=== PATIENT | female | born 1935 | race Caucasian/White ===

== ENCOUNTER 2017-03-09 02:28 | Inpatient (IN) ==
--- NOTE | 2017-03-09 02:09 | Internal Med History&Physical ---
Date of Encounter: 03/09/17 Time of Encounter: 02:09 Assessment and Plan (1) Rhabdomyolysis Current visit: Yes Status: Acute patient fell and was on the floor for about 12 ours, she was found extremely dehydrated with increased creatinine from her baseline and elevated creatinine kinase in the 5,000's, we will admit for aggressive IVF and follow BMP Qualifiers: Rhabdomyolysis type: traumatic Encounter type: initial encounter Qualified Code(s): T79.6XXA - Traumatic ischemia of muscle, initial encounter (2) LESVIA (acute kidney injury) Current visit: Yes Status: Acute from rhabdomyolyis and GI fluid loss, we will aggressive;y hydrate, avoid nephrotoxins, renally dose all medications and follow BMP, she has a baseline creatinine of 1.8, admitted with 3.7, should her renal function worsen we will get nephrology involved (3) CKD (chronic kidney disease) Current visit: Yes Status: Chronic per LESVIA section Qualifiers: Chronic kidney disease stage: stage 3 (moderate) Qualified Code(s): N18.3 - Chronic kidney disease, stage 3 (moderate) (4) Diabetes mellitus Current visit: Yes Status: Chronic well controlled with A1c of 5.7% last month, on Januvia at home, we will hold and do FS ACHS with SSI for coverage Qualifiers: Diabetes mellitus type: type 2 Diabetes mellitus complication status: with neurologic complications Diabetes mellitus complication detail: with polyneuropathy Diabetes mellitus termite control servicer insulin use: without termite control servicer use Qualified Code(s): E11.42 - Type 2 diabetes mellitus with diabetic polyneuropathy (5) Afib Current visit: Yes Status: Chronic paroxysmal in nature most likely, she is on systemic anticoagulation and rate and rhythm control medications, we will continue and follow INR daily, current INR in 3.9, we will check digoxin levels in the setting of LESVIA Qualifiers: Atrial fibrillation type: paroxysmal Qualified Code(s): I48.0 - Paroxysmal atrial fibrillation (6) HTN (hypertension) Current visit: Yes Status: Chronic will continue home medications and follow BP, will temporarily hold antihypertensives if BP is low from extreme dehydration Qualifiers: Hypertension type: essential hypertension Qualified Code(s): I10 - Essential (primary) hypertension (7) GERD (gastroesophageal reflux disease) Current visit: Yes Status: Chronic not on any home medications, will monitor Qualifiers: Esophagitis presence: without esophagitis Qualified Code(s): K21.9 - Gastro -esophageal reflux disease without esophagitis Internal Medicine - H&P: HPI Chief complaint: diarrhea and generalized weakness Admitted From: Hospital to Hospital Transfer Plans for Post Hospital Care: Home History of present illness: Ms. Barr is a 81 year old female with a history of CKD stage [address] up [address] Miller was transferred here for Rhabdomyolysis from [facility]. She reports that she fell without injury on Saturday morning at around 3 AM but that she was unable to get up off the floor until Saturday at 3pm in the afternoon. She subsequently has been having persistent diarrhea which she has had difficulty in controlling. She reports having 3-4 liquid stools a day without blood or mucus. She denies intake of solid food this week but has been taking lemonade. She denies abdominal pain, fever or chills. On the day of presentation she was sitting on the toilet seat for about an hour and was too weak to get off the seat, EMS had to assist her off the toilet seat and take her to [facility] for evaluation where she was found to have extreme dehydration with LESVIA and rhabdomyolysis. Past Med Surg Social Fam HX - Past Medical History Medical history: atrial fibrillation, cardiomyopathy, diabetes, GERD, hyperlipidemia, hypertension, renal disease Psychiatric history: no psych history - Past Surgical History Surgical History: cholecystectomy, hysterectomy, pacemaker/AICD - Social History Smoking Status: Never smoker Smokeless Tobacco Status: No Alcohol use: none Drug use: none - Additional Family History Additional family history: father had ESRD and was on HD prior to his , mother of a hemorrhagic stroke Internal Medicine - H&P: Meds Digoxin [Lanoxin] 0.125 mg PO DAILY 08/26/15 [History] Furosemide [Lasix] 40 mg PO AD 08/26/15 [History] Losartan [Cozaar] 100 mg PO DAILY 08/26/15 [History] Metoprolol [Lopressor] 100 mg PO BID 08/26/15 [History] Propafenone [Rhythmol] 150 mg PO TID 08/26/15 [History] SitaGLIPtin [Januvia] 25 mg PO DAILY 08/26/15 [History] Warfarin [Coumadin] 3 mg PO DAILY 08/26/15 [History] amLODIPine [Norvasc] 2.5 mg PO DAILY 08/26/15 [History] Allopurinol [Zyloprim 100 MG] 100 mg PO BID 03/09/17 [History] Allergies No Known Allergies Allergy (Verified 03/08/17 19:40) All Systems PM: A 10-system review of systems was performed and is negative for pertinent findings except as documented above in the HPI. - Constitutional Vitals: Temp Pulse Resp BP Pulse Ox 99.3 F 99 14 106/56 95 03/09/17 02:06 03/09/17 02:06 03/09/17 02:06 03/09/17 02:06 03/09/17 02:06 PHYSICAL EXAMINATION: GENERAL: Elderly female, lying in bed with no sign of distress, Alert, looks extremely fatigued HEENT: NC/AT, EOMI, PERRLA, anicteric sclera, normal conjunctiva, supple, clear nares, dry mucous membranes, RESP: lungs are clear to auscultation bilaterally, good AE bilaterally, No crackles or wheeze CARDIO: Normal hearts sounds; S1 and 2, RRR with occasional ectopic beats, has a systolic murmur, GI: Soft, full, no tenderness, no organomegaly felt, normal bowel sounds heard MUSCULOSKELETAL: grossly normal movements bilaterally, bilateral red, warm, tender shins with pitting edema, LUE antecubital area edema from IV line infiltration NEUROLOGIC: CN 2-12 intact grossly. No motor/sensory deficit appreciated, PSYCHIATRY: AAO x 3. Mood is fair, SKIN: no skin rash or ulcers noted Internal Med - H&P Results - Labs CBC & Chem 7: 03/09/17 03:11 03/09/17 03:11 - EKG Data -: EKG Interpreted by Myself
[~2017-03-09 02:28] MED LIST: Naloxone 0.4 MG/ML INJ IVP PRN
[2017-03-09] MEDS ORDERED: *HR* Dextrose 50 % in Water (Syg) 50 ML SYRINGE IVP PRN (02:33)
[2017-03-09] MEDS ORDERED: Dextrose Gel 15 GM PO PRN ×2 (02:33)
[2017-03-09] MEDS ORDERED: D5% in Water 1,000 ML IVC PRN (02:33)
[2017-03-09] MEDS: Acetaminophen 325 MG TABLET PO PRN (03:03)
[2017-03-09] MEDS: Insulin LISPRO 300 UNITS/3 ML VIAL SQ SCH ×6 (03:03→20:39)
[2017-03-09] MEDS: 0.9 % Sodium Chloride 1,000 ML IVC SCH ×2 (03:03→07:34)
[2017-03-09] MEDS: Metoprolol 100 MG TABLET PO SCH ×3 (03:04→20:58)
[2017-03-09 03:23] LABS: Hematocrit 30.7 % (35.3-44.9); Hemoglobin 10.3 g/dL (11.5-15.4); Mean Corpuscular HGB Conc 33.6 g/dL (31.6-35.5); Mean Corpuscular Hemoglobin 29.3 pg (28.0-33.3); Mean Corpuscular Volume 87.2 fL (83.0-100.0); Mean Platelet Volume 10.6 fL (9.4-12.4); Platelet Count 188 K/mcL (140-400); Red Blood Count 3.52 M/mcL (3.82-4.97); Red Cell Distribution Width 13.9 % (11.5-14.5)
[2017-03-09 03:29] LABS: INR 3.9
[2017-03-09 03:35] LABS: Prothrombin Time 43.8 Seconds (9.4-12.1)
[2017-03-09 03:39] LABS: Calcium 8.4 mg/dL (8.6-10.8); Magnesium 1.4 mg/dL (1.6-2.6); Potassium 3.3 mEq/L (3.5-4.5)
[2017-03-09 03:47] LABS: Digoxin 1.5 ng/mL (0.8-2.0)
[2017-03-09] MEDS: amLODIPine 5 MG TABLET PO SCH (07:40)
[2017-03-09] MEDS: *HR* Digoxin 0.125 MG TABLET PO SCH (07:42)
[2017-03-09] MEDS ORDERED: *HR* Warfarin 3 MG TABLET PO SCH (09:00)
[2017-03-09] MEDS ORDERED: Magnesium Sulfate 2 GM in D5% in Water 100 ML IVPB ONE (12:11)
--- NOTE | 2017-03-09 12:16 | Internal Med Progress Note ---
Date of Encounter: 03/09/17 Time of Encounter: 12:14 - Assessment and plan (1) LESVIA (acute kidney injury) Current Visit: Yes Status: Acute Assessment and plan: continue with iv fluids. likely prerenal. monitor kidney function tests. avoid nephrotoxic agents. (2) Rhabdomyolysis Current Visit: Yes Status: Acute Assessment and plan: continue iv fluids. recheck cpk and calcium tomorrow. Qualifiers: Rhabdomyolysis type: traumatic Encounter type: initial encounter Qualified Code(s): T79.6XXA - Traumatic ischemia of muscle, initial encounter (3) Afib Current Visit: Yes Status: Chronic Assessment and plan: continue home meds. hold cumadin for now. Qualifiers: Atrial fibrillation type: paroxysmal Qualified Code(s): I48.0 - Paroxysmal atrial fibrillation (4) CKD (chronic kidney disease) Current Visit: Yes Status: Chronic Qualifiers: Chronic kidney disease stage: stage 3 (moderate) Qualified Code(s): N18.3 - Chronic kidney disease, stage 3 (moderate) (5) Diabetes mellitus Current Visit: Yes Status: Chronic Assessment and plan: insulin therapy. Qualifiers: Diabetes mellitus type: type 2 Diabetes mellitus complication status: with neurologic complications Diabetes mellitus complication detail: with polyneuropathy Diabetes mellitus dedicated intermodal truck driver insulin use: without dedicated intermodal truck driver use Qualified Code(s): E11.42 - Type 2 diabetes mellitus with diabetic polyneuropathy (6) GERD (gastroesophageal reflux disease) Current Visit: Yes Status: Chronic Qualifiers: Esophagitis presence: without esophagitis Qualified Code(s): K21.9 - Gastro -esophageal reflux disease without esophagitis (7) HTN (hypertension) Current Visit: Yes Status: Chronic Qualifiers: Hypertension type: essential hypertension Qualified Code(s): I10 - Essential (primary) hypertension (8) Dehydration Current Visit: No Status: Acute Assessment and plan: continue flids. (9) Diarrhea Current Visit: No Status: Acute Assessment and plan: resolved for now, continue mnitorign. started on flayl empirically. Qualifiers: Diarrhea type: unspecified type Qualified Code(s): R19.7 - Diarrhea, unspecified - Subjective Interval history: feels better, no more diarhe.a - Constitutional Vitals: Temp Pulse Resp BP Pulse Ox 98.3 F 59 18 101/54 97 03/09/17 11:01 03/09/17 11:01 03/09/17 11:01 03/09/17 11:01 03/09/17 11:01 General appearance: Present: A&O X 3, pleasant, no acute distress - Head Head exam: Present: atraumatic, normocephalic - Eye Eye exam: Present: PERRL, conjuntiva pink, sclera anicteric Pupils: Present: PERRL - Neck Neck exam general surgery: Present: supple, trachea midline. Absent: lymphadenopathy - Respiratory Respiratory exam: Present: CTAB. Absent: accessory muscle use, rales, rhonchi, wheezes - Cardiovascular Cardiovascular exam: Present: RRR, +S1, +S2. Absent: diastolic murmur, gallop, rubs, systolic murmur - GI/Abdominal GI/Abdominal exam: Present: normal bowel sounds, soft, no peritoneal signs. Absent: distended, tenderness - Extremities Exam Extremities exam: Present: warm, radial pulses palpable and symetrical. Absent : calf tenderness, cyanotic, pedal edema - Neurological Exam Neurological exam: Present: CN II-XII intact, oriented X3, no focal deficits. Absent: pronater drift, facial droop, speech deficit - Skin Skin exam: Present: dry, intact Internal Medicine: Result - Labs CBC & Chem 7: 03/09/17 03:11 03/09/17 03:11 Labs: Short CBC 03/09/17 Range/Units 03:11 WBC 23.7 H (4.3-11.1) K/mcL Hgb 10.3 L (11.5-15.4) g/dL Hct 30.7 L (35.3-44.9) % Plt Count 188 (140-400) K/mcL BMP 03/09/17 03:11 Sodium 134 L Potassium 3.3 L Chloride 102 Carbon Dioxide 18 L BUN 63 H Creatinine 3.15 H Glucose 134 H Calcium 8.4 L Cardiac Enzymes 03/09/17 Range/Units 03:11 Troponin I 0.04 H* (0-0.03) ng/mL - ABG Interpretation ABG results: PT/INR, D-dimer PT 43.8 Seconds (9.4-12.1) H* 03/09/17 03:11 Consult Discharge Plan - Plan Referrals: Karen Syed DO [Primary Care Provider] -
[2017-03-09] MEDS: MetroNIDAZOLE 500 MG/100 ML 500 MG/100 ML BAG IVPB SCH (15:33)
[2017-03-09] MEDS ORDERED: Warfarin perPT PO PRN (18:00)
[2017-03-10] MEDS: MetroNIDAZOLE 500 MG/100 ML 500 MG/100 ML BAG IVPB SCH ×3 (00:05→16:02)
[2017-03-10 04:13] LABS: INR 4.1
[2017-03-10 04:18] LABS: Basophils % 0.1 %; Eosinophils # 0.1 K/mcL (0.0-0.6); Eosinophils % 0.3 %; Hematocrit 24.6 % (35.3-44.9); Immature Granulocytes % 0.6 % (0-4); Lymphocytes # 1.4 K/mcL (0.6-4.6); Lymphocytes % 6.8 %; Mean Corpuscular HGB Conc 34.1 g/dL (31.6-35.5); Mean Corpuscular Hemoglobin 30.3 pg (28.0-33.3); Mean Corpuscular Volume 88.8 fL (83.0-100.0); Mean Platelet Volume 11.4 fL (9.4-12.4); Monocytes # 0.9 K/mcL (0.0-1.3); Monocytes % 4.7 %; Neutrophils # 17.4 K/mcL (1.6-8.9); Platelet Count 170 K/mcL (140-400); Red Blood Count 2.77 M/mcL (3.82-4.97); Red Cell Distribution Width 14.1 % (11.5-14.5); Segmented Neutrophils % 87.5 %
[2017-03-10 04:20] LABS: Prothrombin Time 45.7 Seconds (9.4-12.1)
[2017-03-10 04:21] LABS: Hemoglobin 8.4 g/dL (11.5-15.4)
[2017-03-10 04:23] LABS: Calcium 7.9 mg/dL (8.6-10.8); Potassium 3.9 mEq/L (3.5-4.5)
[2017-03-10] MEDS: Insulin LISPRO 300 UNITS/3 ML VIAL SQ SCH ×3 (08:21→17:15)
[2017-03-10] MEDS: *HR* Digoxin 0.125 MG TABLET PO SCH (08:28)
[2017-03-10] MEDS: Metoprolol 100 MG TABLET PO SCH ×2 (08:28→21:55)
[2017-03-10] MEDS: amLODIPine 5 MG TABLET PO SCH (08:29)
[2017-03-10] MEDS: Acetaminophen 325 MG TABLET PO PRN ×2 (11:09→18:35)
[2017-03-10] MEDS: 0.9 % Sodium Chloride 1,000 ML IVC SCH ×2 (11:09→21:55)
--- NOTE | 2017-03-10 12:39 | Electrocardiograph Report ---
[place] [id number] Test Date: 2017-03-09 Pat Name: Esmer Barr Department: 112 Room: [facility] Gender: F Auto Mechanic: DONALDO : 1935 Requested By: Cheikh Foster Order Number: [id number] [place] MD: Fernando Palma Measurements Intervals [place] Rate: 95 P: 259 DC: 245 QRS: 2 QRSD: 105 T: 35 QT: 368 QTc: 421 Interpretive Statements ECTOPIC ATRIAL RHYTHM WITH FIRST DEGREE AV BLOCK NONSPECIFIC ST \T\ T-WAVE ABNORMALITY Electronically Signed On 03-10-2017 12:37:48 EDT by Fernando Palma
--- NOTE | 2017-03-10 13:43 | Internal Med Progress Note ---
Date of Encounter: 03/10/17 Time of Encounter: 09:55 - Assessment and plan (1) LESVIA (acute kidney injury) Current Visit: Yes Status: Acute Assessment and plan: resume iv fluids @ 100 ml / h likely prerenal. elevated cpk, which is downtrending. monitor kidney function tests. avoid nephrotoxic agents. baseline creatinine 1.80-2. Today creatinine is 2.7, downtrending, it was 3.71 on admission. will continue monitoring. (2) Afib Current Visit: Yes Status: Chronic Assessment and plan: continue home meds. hold cumadin for now. Qualifiers: Atrial fibrillation type: paroxysmal Qualified Code(s): I48.0 - Paroxysmal atrial fibrillation (3) CKD (chronic kidney disease) Current Visit: Yes Status: Chronic Qualifiers: Chronic kidney disease stage: stage 3 (moderate) Qualified Code(s): N18.3 - Chronic kidney disease, stage 3 (moderate) (4) Diabetes mellitus Current Visit: Yes Status: Chronic Assessment and plan: insulin therapy. glucose stable. Qualifiers: Diabetes mellitus type: type 2 Diabetes mellitus complication status: with neurologic complications Diabetes mellitus complication detail: with polyneuropathy Diabetes mellitus long term care social worker insulin use: without long term care social worker use Qualified Code(s): E11.42 - Type 2 diabetes mellitus with diabetic polyneuropathy (5) GERD (gastroesophageal reflux disease) Current Visit: Yes Status: Chronic Qualifiers: Esophagitis presence: without esophagitis Qualified Code(s): K21.9 - Gastro -esophageal reflux disease without esophagitis (6) HTN (hypertension) Current Visit: Yes Status: Chronic Qualifiers: Hypertension type: essential hypertension Qualified Code(s): I10 - Essential (primary) hypertension (7) Dehydration Current Visit: No Status: Acute Assessment and plan: continue flids. (8) Diarrhea Current Visit: No Status: Acute Assessment and plan: resolved for now, continue monitorign. started on flayl empirically. send stool sample if diarrhea, d/w nursing staff. Qualifiers: Diarrhea type: unspecified type Qualified Code(s): R19.7 - Diarrhea, unspecified - Subjective Interval history: feels better, no more diarhea, no nausea - Constitutional Vitals: Temp Pulse Resp BP Pulse Ox 98.8 F 59 18 109/61 96 03/10/17 11:11 03/10/17 11:11 03/10/17 11:11 03/10/17 11:11 03/10/17 11:11 General appearance: Present: A&O X 3, pleasant, no acute distress - Head Head exam: Present: atraumatic, normocephalic - Eye Eye exam: Present: PERRL, conjuntiva pink, sclera anicteric Pupils: Present: PERRL - Neck Neck exam general surgery: Present: supple, trachea midline. Absent: lymphadenopathy - Respiratory Respiratory exam: Present: CTAB. Absent: accessory muscle use, rales, rhonchi, wheezes - Cardiovascular Cardiovascular exam: Present: RRR, +S1, +S2. Absent: diastolic murmur, gallop, rubs, systolic murmur - GI/Abdominal GI/Abdominal exam: Present: normal bowel sounds, soft, no peritoneal signs. Absent: distended, tenderness - Extremities Exam Extremities exam: Present: warm, radial pulses palpable and symetrical. Absent : calf tenderness, cyanotic, pedal edema - Neurological Exam Neurological exam: Present: CN II-XII intact, oriented X3, no focal deficits. Absent: pronater drift, facial droop, speech deficit - Skin Skin exam: Present: dry, intact Internal Medicine: Result - Labs CBC & Chem 7: 03/10/17 03:46 03/10/17 03:46 Labs: Short CBC 03/10/17 Range/Units 03:46 WBC 19.9 H (4.3-11.1) K/mcL Hgb 8.4 L D (11.5-15.4) g/dL Hct 24.6 L (35.3-44.9) % Plt Count 170 (140-400) K/mcL Neutrophils # 17.4 H (1.6-8.9) K/mcL BMP 03/10/17 03:46 Sodium 130 L Potassium 3.9 Chloride 105 Carbon Dioxide 14 L BUN 59 H Creatinine 2.70 H Glucose 108 H Calcium 7.9 L - ABG Interpretation ABG results: PT/INR, D-dimer PT 45.7 Seconds (9.4-12.1) H* 03/10/17 03:46 Consult Discharge Plan - Plan Referrals: Karen Syed DO [Primary Care Provider] - (web request sent on 03/09/17)
[2017-03-10] MEDS ORDERED: Magnesium Sulfate 2 GM in D5% in Water 100 ML IVPB ONE (17:28)
[2017-03-11] MEDS: Insulin LISPRO 300 UNITS/3 ML VIAL SQ SCH ×5 (00:12→20:30)
[2017-03-11] MEDS: MetroNIDAZOLE 500 MG/100 ML 500 MG/100 ML BAG IVPB SCH ×3 (00:16→15:16)
[2017-03-11 04:59] LABS: Basophils % 0.2 %; Eosinophils # 0.2 K/mcL (0.0-0.6); Hematocrit 25.6 % (35.3-44.9); Hemoglobin 8.5 g/dL (11.5-15.4); Immature Granulocytes % 1.5 % (0-4); Lymphocytes # 1.4 K/mcL (0.6-4.6); Lymphocytes % 7.3 %; Mean Corpuscular HGB Conc 33.2 g/dL (31.6-35.5); Mean Corpuscular Hemoglobin 29.2 pg (28.0-33.3); Mean Platelet Volume 10.6 fL (9.4-12.4); Monocytes # 1.1 K/mcL (0.0-1.3); Monocytes % 5.6 %; Neutrophils # 16.1 K/mcL (1.6-8.9); Platelet Count 175 K/mcL (140-400); Red Blood Count 2.91 M/mcL (3.82-4.97); Red Cell Distribution Width 14.3 % (11.5-14.5); Segmented Neutrophils % 84.4 %
[2017-03-11 05:01] LABS: INR 2.7; Prothrombin Time 29.5 Seconds (9.4-12.1)
[2017-03-11 05:14] LABS: Calcium 7.8 mg/dL (8.6-10.8); Potassium 3.7 mEq/L (3.5-4.5)
[2017-03-11] MEDS: amLODIPine 5 MG TABLET PO SCH (08:32)
[2017-03-11] MEDS: Metoprolol 100 MG TABLET PO SCH ×2 (08:32→20:18)
[2017-03-11] MEDS: *HR* Digoxin 0.125 MG TABLET PO SCH (08:33)
[2017-03-11] MEDS: 0.9 % Sodium Chloride 1,000 ML IVC SCH (11:51)
[2017-03-11 15:07] LABS: Bilirubin,Urine Negative (Negative); Blood,Urine Negative (Negative); Color,Urine Yellow (Yellow); Glucose,Urine (UA) Normal (Normal); Ketones,Urine Negative (Negative); Leukocyte Esterase,Urine Trace (Negative); Nitrite,Urine Negative (Negative); Protein,Urine Trace mg/dL (Neg-Trace); Specific Gravity,Urine 1.016 (1.010-1.025); Urobilinogen,Urine Normal (Normal)
[2017-03-11 15:11] LABS: Clarity,Urine Clear (Clear)
[2017-03-11 15:15] LABS: Hyaline Casts,Urine None Seen per lpf (None-Few)
[2017-03-11 15:32] LABS: Bacteria,Urine Moderate per hpf (None-Few); RBC,Urine 0-3 per hpf (0-3); Squamous Epithelial Cell,Urine Few per lpf (None-Few); WBC,Urine 0-3 per hpf (0-3)
[2017-03-11] MEDS ORDERED: amLODIPine 5 MG TABLET PO ONE (17:04)
[2017-03-11] MEDS ORDERED: *HR* Warfarin 2 MG TABLET PO ONE (18:00)
[2017-03-11 18:42] LABS: % Iron Saturation 12 % (15-50); Iron 25 mcg/dL (50-170); Lactate Dehydrogenase 500 Units/L (159-327); Transferrin 144 mg/dL (180-382)
--- NOTE | 2017-03-11 18:43 | Internal Med Progress Note ---
Date of Encounter: 03/11/17 Time of Encounter: 12:25 - Assessment and plan (1) LESVIA (acute kidney injury) Current Visit: Yes Status: Acute Assessment and plan: continue iv fluids, renal function tets slowly improving. likely prerenal. elevated cpk, which is downtrending. monitor kidney function tests. avoid nephrotoxic agents. baseline creatinine 1.80-2. will continue monitoring. (2) Afib Current Visit: Yes Status: Chronic Assessment and plan: continue home meds. hold cumadin for now. Qualifiers: Atrial fibrillation type: paroxysmal Qualified Code(s): I48.0 - Paroxysmal atrial fibrillation (3) CKD (chronic kidney disease) Current Visit: Yes Status: Chronic Qualifiers: Chronic kidney disease stage: stage 3 (moderate) Qualified Code(s): N18.3 - Chronic kidney disease, stage 3 (moderate) (4) Diabetes mellitus Current Visit: Yes Status: Chronic Assessment and plan: insulin therapy. glucose stable. Qualifiers: Diabetes mellitus type: type 2 Diabetes mellitus complication status: with neurologic complications Diabetes mellitus complication detail: with polyneuropathy Diabetes mellitus adjunct faculty for medical terminology insulin use: without adjunct faculty for medical terminology use Qualified Code(s): E11.42 - Type 2 diabetes mellitus with diabetic polyneuropathy (5) GERD (gastroesophageal reflux disease) Current Visit: Yes Status: Chronic Qualifiers: Esophagitis presence: without esophagitis Qualified Code(s): K21.9 - Gastro -esophageal reflux disease without esophagitis (6) HTN (hypertension) Current Visit: Yes Status: Chronic Qualifiers: Hypertension type: essential hypertension Qualified Code(s): I10 - Essential (primary) hypertension (7) Dehydration Current Visit: No Status: Acute Assessment and plan: continue flids. (8) Diarrhea Current Visit: No Status: Acute Assessment and plan: resolved for now, continue monitorign. started on flayl empirically. negative testing for cdiff. send stool sample if diarrhea, d/w nursing staff. Qualifiers: Diarrhea type: unspecified type Qualified Code(s): R19.7 - Diarrhea, unspecified (9) Leukocytosis Current Visit: Yes Status: Acute Assessment and plan: slowly trending down, no uti, no pneumonia, no cellulitis, no c diff Qualifiers: Leukocytosis type: unspecified Qualified Code(s): D72.829 - Elevated white blood cell count, unspecified - Subjective Interval history: feels better, no diarrhea, no nausea, still knee pain, seems chornic. - Constitutional Vitals: Temp Pulse Resp BP Pulse Ox 97.7 F 71 18 180/66 94 03/11/17 16:48 03/11/17 16:48 03/11/17 16:48 03/11/17 16:48 03/11/17 16:48 General appearance: Present: A&O X 3, pleasant, no acute distress - Head Head exam: Present: atraumatic, normocephalic - Eye Eye exam: Present: PERRL, conjuntiva pink, sclera anicteric Pupils: Present: PERRL - Neck Neck exam general surgery: Present: supple, trachea midline. Absent: lymphadenopathy - Respiratory Respiratory exam: Present: CTAB. Absent: accessory muscle use, rales, rhonchi, wheezes - Cardiovascular Cardiovascular exam: Present: RRR, +S1, +S2. Absent: diastolic murmur, gallop, rubs, systolic murmur - GI/Abdominal GI/Abdominal exam: Present: normal bowel sounds, soft, no peritoneal signs. Absent: distended, tenderness - Extremities Exam Extremities exam: Present: warm, radial pulses palpable and symetrical. Absent : calf tenderness, cyanotic, pedal edema - Neurological Exam Neurological exam: Present: CN II-XII intact, oriented X3, no focal deficits. Absent: pronater drift, facial droop, speech deficit - Skin Skin exam: Present: dry, intact Internal Medicine: Result - Labs CBC & Chem 7: 03/11/17 04:16 03/11/17 04:16 Labs: Short CBC 03/11/17 Range/Units 04:16 WBC 19.1 H (4.3-11.1) K/mcL Hgb 8.5 L (11.5-15.4) g/dL Hct 25.6 L (35.3-44.9) % Plt Count 175 (140-400) K/mcL Neutrophils # 16.1 H (1.6-8.9) K/mcL BMP 03/11/17 04:16 Sodium 135 L Potassium 3.7 Chloride 109 Carbon Dioxide 18 L BUN 48 H D Creatinine 2.05 H Glucose 93 Calcium 7.8 L Urine 03/11/17 Range/Units 14:54 Urine Color Yellow (Yellow) Urine Clarity Clear (Clear) Urine pH 6.0 (5.0-8.0) pH Units Ur Specific [place] 1.016 (1.010-1.025) Urine Protein Trace (Neg-Trace) mg/dL Urine Glucose (UA) Normal (Normal) mg/dL - ABG Interpretation ABG results: PT/INR, D-dimer PT 29.5 Seconds (9.4-12.1) H 03/11/17 04:16 - Impressions Impressions Chest CT 03/11/17 14:15 IMPRESSION: 1. No acute pulmonary infiltrate identified. New small bilateral pleural effusions with very mild dependent lower lobe atelectasis. 2. Otherwise unremarkable noncontrast CT of the chest. D/ / 03/11/2017 15:37:44 Dao Escobar MD / [email or web address] Interpreting Provider: Dao Escobar MD Consult Discharge Plan - Plan Referrals: Karen Syed DO [Primary Care Provider] - (web request sent on 03/09/17 Patient will go to Rehab)
[2017-03-11 19:16] LABS: Ferritin 2182 ng/ml (5-204)
[2017-03-11 19:33] LABS: Folate 7.6 ng/mL (7.0-31.4)
[2017-03-12] MEDS: MetroNIDAZOLE 500 MG/100 ML 500 MG/100 ML BAG IVPB SCH ×2 (00:18→08:48)
[2017-03-12] MEDS: 0.9 % Sodium Chloride 1,000 ML IVC SCH ×2 (02:28)
[2017-03-12 05:41] LABS: Basophils % 0.2 %; Eosinophils # 0.2 K/mcL (0.0-0.6); Eosinophils % 1.4 %; Hemoglobin 8.5 g/dL (11.5-15.4); Immature Granulocytes % 4.2 % (0-4); Lymphocytes # 1.8 K/mcL (0.6-4.6); Lymphocytes % 10.5 %; Mean Corpuscular Volume 88.3 fL (83.0-100.0); Monocytes # 1.7 K/mcL (0.0-1.3); Neutrophils # 12.5 K/mcL (1.6-8.9); Platelet Count 220 K/mcL (140-400); Red Blood Count 2.83 M/mcL (3.82-4.97); Red Cell Distribution Width 14.6 % (11.5-14.5); Segmented Neutrophils % 73.7 %
[2017-03-12 05:49] LABS: INR 2.4; Prothrombin Time 26.3 Seconds (9.4-12.1)
[2017-03-12 05:56] LABS: Calcium 7.7 mg/dL (8.6-10.8); Magnesium 1.9 mg/dL (1.6-2.6); Potassium 3.9 mEq/L (3.5-4.5)
[2017-03-12] MEDS: Insulin LISPRO 300 UNITS/3 ML VIAL SQ SCH ×5 (08:47→22:37)
[2017-03-12] MEDS: amLODIPine 5 MG TABLET PO SCH (08:47)
[2017-03-12] MEDS: Metoprolol 100 MG TABLET PO SCH ×2 (08:47→22:37)
[2017-03-12] MEDS: *HR* Digoxin 0.125 MG TABLET PO SCH (08:51)
[2017-03-12] MEDS ORDERED: *HR* Phytonadione 5 MG TABLET PO ONE (12:15)
--- NOTE | 2017-03-12 15:41 | Gastroenterology Consult Note ---
Date of Encounter: 03/12/17 Time of Encounter: 11:50 - Assessment and plan (1) Anemia Current Visit: Yes Status: Acute Assessment and plan: Hgb 10.3 on admission and this a.m. Hgb 8.5. Iron 25 with ferritin 2182. Check hemochromatosis panel. Plan for colonoscopy if INR less than 1.5. Clear liquid diet all day Saturday with no red or purple. NPO at midnight Saturday night. If unable tolerate NuLytely please use MiraLAX prep. If not clear by 6 AM, give 2 tap water enemas. Qualifiers: Qualified Code(s): D64.9 - Anemia, unspecified (2) Diarrhea Current Visit: No Status: Acute Assessment and plan: Resolved. Qualifiers: Diarrhea type: unspecified type Qualified Code(s): R19.7 - Diarrhea, unspecified (3) GERD (gastroesophageal reflux disease) Current Visit: Yes Status: Chronic Qualifiers: Esophagitis presence: without esophagitis Qualified Code(s): K21.9 - Gastro -esophageal reflux disease without esophagitis (4) Leukocytosis Current Visit: Yes Status: Acute Assessment and plan: Continue Flagyl. Qualifiers: Leukocytosis type: unspecified Qualified Code(s): D72.829 - Elevated white blood cell count, unspecified (5) Supratherapeutic INR Current Visit: Yes Status: Acute Assessment and plan: INR 3.9 on admission, down to 2.4 today. She has received Vitamin K. Will need INR less than 1.5 for colonoscopy. - Time Spent With Patient Total time spent is greater than 50% in coordination of care (as documented) at patient's floor/unit and/or counseling patient: GI History of Present Illness - Data of Consult Patient: new to practice Consult date: 03/12/17 Requesting Physician: Dylan Bar - Consult Narrative Reason for consult: anemia History of present illness: Ms. Barr is a 81 year old female with PMHx of Afib on Coumadin, cardiomyopathy , DM, GERD, HLD, HTN and CKD stage 3 who was transferred here for rhabdomyolysis. She reports that she fell without injury on Saturday morning at around 3 AM but that she was unable to get up off the floor until Saturday at 3pm in the afternoon. She subsequently has been having persistent diarrhea which she has had difficulty in controlling. She reports having 3-4 liquid stools a day without blood or mucus. She denies fever, chills, or abdominal pain. Diarrhea has resolved since admission, and she was started on empiric Flagyl. Hgb 10.3 on admission and today Hgb 8.5. Procedures: Colonoscopy 05/26/2007 Dr. Fisher NSAIDs: None Anticoagulation: Coumadin Past Med Surg Social Fam HX - Past Medical History Medical history: atrial fibrillation, cardiomyopathy, diabetes, GERD, hyperlipidemia, hypertension, renal disease Psychiatric history: no psych history - Past Surgical History Surgical History: cholecystectomy, hysterectomy, pacemaker/AICD - Social History Smoking Status: Never smoker Smokeless Tobacco Status: No Alcohol use: none Drug use: none - Gastrointestinal Gastrointestinal: Present: as per HPI - Constitutional Constitutional: as per HPI - EENT Eyes: as per HPI Ears: Present: as per HPI Nose, mouth and throat: Present: as per HPI - Cardiovascular Cardiovascular ROS: Present: as per HPI - Respiratory Respiratory IM: Present: as per HPI - Genitourinary Genitourinary: Absent: change in color, Urinary frequency - Neurological ROS Neurological GI: Present: as per HPI - Hematologic/Lymphatic Hematologic/Lymphatic pediatric: Present: as per HPI - Musculoskeletal Musculoskeletal ROS GI: Present: as per HPI - Integumentary Integumentary GI: Present: as per HPI - Psychiatric ROS Psychiatric GI: Present: as per HPI - Endocrine Endocrine IM: Present: as per HPI - Constitutional Vitals: Temp Pulse Resp BP Pulse Ox 99 F 63 18 147/63 98 03/12/17 15:34 03/12/17 15:34 03/12/17 15:34 03/12/17 15:34 03/12/17 15:34 General appearance: Present: cooperative, A&O X 3, no acute distress, answers questions appropriately - Head Head exam: Present: atraumatic, normocephalic - Eye Eye exam: Present: normal appearance, sclera anicteric - ENT ENT exam: Present: mucous membranes moist - Neck Neck exam general surgery: Present: normal inspection, trachea midline - Respiratory Respiratory exam: Present: CTAB. Absent: rales, rhonchi - Cardiovascular Cardiovascular exam: Present: RRR, +S1, +S2 - GI/Abdominal GI/Abdominal exam: Present: soft, no peritoneal signs. Absent: distended, firm , guarding, tenderness - Rectal Rectal exam: Present: deferred - Extremities Exam Extremities exam: Present: warm - Neurological Exam Neurological exam: Present: no focal deficits - Psychiatric Psychiatric exam: Present: normal affect, normal mood - Skin Skin exam: Present: dry, intact, normal color, warm Results - Labs CBC & Chem 7: 03/12/17 05:33 03/12/17 05:33 Labs: Last Result Calcium 7.7 mg/dL (8.6-10.8) L 03/12/17 05:33 Iron 25 mcg/dL (50-170) L 03/11/17 17:37 % Saturation 12 % (15-50) L 03/11/17 17:37 Transferrin 144 mg/dL (180-382) L 03/11/17 17:37 Ferritin 2182 ng/ml (5-204) H 03/11/17 17:37 Troponin I 0.04 ng/mL (0-0.03) H* 03/09/17 03:11 Vitamin B12 713 pg/mL (213-816) 03/11/17 17:37 Folate 7.6 ng/mL (7.0-31.4) 03/11/17 17:37 Entire Visit Hgb 8.5 g/dL (11.5-15.4) L 03/12/17 05:33 Hct 25.0 % (35.3-44.9) L 03/12/17 05:33 PT 26.3 Seconds (9.4-12.1) H 03/12/17 05:33 Ferritin 2182 ng/ml (5-204) H 03/11/17 17:37 Folate 7.6 ng/mL (7.0-31.4) 03/11/17 17:37 - ABG ABG results: PT/INR, D-dimer PT 26.3 Seconds (9.4-12.1) H 03/12/17 05:33 - Impressions Impressions Chest CT 03/11/17 14:15 IMPRESSION: 1. No acute pulmonary infiltrate identified. New small bilateral pleural effusions with very mild dependent lower lobe atelectasis. 2. Otherwise unremarkable noncontrast CT of the chest. D/ / 03/11/2017 15:37:44 Dao Escobar MD / [email or web address] Interpreting Provider: Dao Escobar MD Consult Discharge Plan - Plan Referrals: Karen Syed, [Primary Care Provider] - (Patient will go to Rehab)
[2017-03-12] MEDS: metroNIDAZOLE 500 MG TABLET PO SCH ×2 (16:15→22:39)
[2017-03-12] MEDS ORDERED: *HR* Warfarin 3 MG TABLET PO ONE (18:00)
--- NOTE | 2017-03-12 18:28 | Internal Med Progress Note ---
Date of Encounter: 03/12/17 Time of Encounter: 11:00 - Assessment and plan (1) LESVIA (acute kidney injury) Current Visit: Yes Status: Acute Assessment and plan: renal function tets slowly improving. likely prerenal. elevated cpk, which is downtrending. monitor kidney function tests. avoid nephrotoxic agents. baseline creatinine 1.80-2. will continue monitoring. (2) Afib Current Visit: Yes Status: Chronic Assessment and plan: continue home meds. hold cumadin for now in anticipation o posuble endoscpi studies for anemia workup. vit k given today. Qualifiers: Atrial fibrillation type: paroxysmal Qualified Code(s): I48.0 - Paroxysmal atrial fibrillation (3) CKD (chronic kidney disease) Current Visit: Yes Status: Chronic Qualifiers: Chronic kidney disease stage: stage 3 (moderate) Qualified Code(s): N18.3 - Chronic kidney disease, stage 3 (moderate) (4) Diabetes mellitus Current Visit: Yes Status: Chronic Assessment and plan: insulin therapy. glucose stable. Qualifiers: Diabetes mellitus type: type 2 Diabetes mellitus complication status: with neurologic complications Diabetes mellitus complication detail: with polyneuropathy Diabetes mellitus intermediate accountant insulin use: without intermediate accountant use Qualified Code(s): E11.42 - Type 2 diabetes mellitus with diabetic polyneuropathy (5) GERD (gastroesophageal reflux disease) Current Visit: Yes Status: Chronic Qualifiers: Esophagitis presence: without esophagitis Qualified Code(s): K21.9 - Gastro -esophageal reflux disease without esophagitis (6) HTN (hypertension) Current Visit: Yes Status: Chronic Qualifiers: Hypertension type: essential hypertension Qualified Code(s): I10 - Essential (primary) hypertension (7) Dehydration Current Visit: No Status: Acute (8) Diarrhea Current Visit: No Status: Acute Qualifiers: Diarrhea type: unspecified type Qualified Code(s): R19.7 - Diarrhea, unspecified (9) Leukocytosis Current Visit: Yes Status: Acute Assessment and plan: slowly trending down, no uti, no pneumonia, no cellulitis, no c diff Qualifiers: Leukocytosis type: unspecified Qualified Code(s): D72.829 - Elevated white blood cell count, unspecified (10) Anemia Current Visit: Yes Status: Acute Assessment and plan: hb stable the last couple of day, althoguh she was initially hemoconcentrated s still lower than baseine, she is con AC at home, GI called and will plan for endoscopic studies likely on . Qualifiers: Anemia type: iron deficiency Iron deficiency anemia type: unspecified iron deficiency Qualified Code(s): D50.9 - Iron deficiency anemia, unspecified - Subjective Interval history: feels better, no diarrhea, no nausea, still knee pain, seems chornic. - Constitutional Vitals: Temp Pulse Resp BP Pulse Ox 99 F 63 18 147/63 98 03/12/17 15:34 03/12/17 15:34 03/12/17 15:34 03/12/17 15:34 03/12/17 15:34 General appearance: Present: A&O X 3, pleasant, no acute distress - Head Head exam: Present: atraumatic, normocephalic - Eye Eye exam: Present: PERRL, conjuntiva pink, sclera anicteric Pupils: Present: PERRL - Neck Neck exam general surgery: Present: supple, trachea midline. Absent: lymphadenopathy - Respiratory Respiratory exam: Present: CTAB. Absent: accessory muscle use, rales, rhonchi, wheezes - Cardiovascular Cardiovascular exam: Present: RRR, +S1, +S2. Absent: diastolic murmur, gallop, rubs, systolic murmur - GI/Abdominal GI/Abdominal exam: Present: normal bowel sounds, soft, no peritoneal signs. Absent: distended, tenderness - Extremities Exam Extremities exam: Present: warm, radial pulses palpable and symetrical. Absent : calf tenderness, cyanotic, pedal edema - Neurological Exam Neurological exam: Present: CN II-XII intact, oriented X3, no focal deficits. Absent: pronater drift, facial droop, speech deficit - Skin Skin exam: Present: dry, intact Internal Medicine: Result - Labs CBC & Chem 7: 03/12/17 05:33 03/12/17 05:33 Labs: Short CBC 03/12/17 Range/Units 05:33 WBC 17.0 H (4.3-11.1) K/mcL Hgb 8.5 L (11.5-15.4) g/dL Hct 25.0 L (35.3-44.9) % Plt Count 220 (140-400) K/mcL Neutrophils # 12.5 H (1.6-8.9) K/mcL BMP 03/12/17 05:33 Sodium 137 Potassium 3.9 Chloride 112 H Carbon Dioxide 17 L BUN 36 H D Creatinine 1.56 H Glucose 97 Calcium 7.7 L - ABG Interpretation ABG results: PT/INR, D-dimer PT 26.3 Seconds (9.4-12.1) H 03/12/17 05:33 - Impressions Impressions Chest CT 03/11/17 14:15 IMPRESSION: 1. No acute pulmonary infiltrate identified. New small bilateral pleural effusions with very mild dependent lower lobe atelectasis. 2. Otherwise unremarkable noncontrast CT of the chest. D/ / 03/11/2017 15:37:44 Dao Escobar MD / bcarter Interpreting Provider: Dao Escobar MD Consult Discharge Plan - Plan Referrals: Karen Syed, DO [Primary Care Provider] - (Patient will go to Rehab)
--- NOTE | 2017-03-12 19:50 | Venous Imaging Report ---
UE Venous Duplex Patient Name:Esmer Barr Order Number:[id number] Procedure Date:03/11/2017 Date:1935ge:81 yrs Gender:Female Location:[facility] Room #: 2A62 Microbiology Technician:Gus Sandra Referring MD:Guerrero Sr MD director corporate security:DO Yanely Ballard MD:Mayco Swan MD Primary Indications:Rule out DVT Secondary Indications: Impressions: Normal left upper extremity deep and superficial venous exam. Normal contralateral subclavian vein. Recommendations: After imaging the patient returned to their room. Findings Venous Duplex Results: Right: Venous imaging of the upper extremity reveals full patency and normal vessel compressibility of the right subclavian. Doppler signals in the evaluated veins were normal. Left: Venous imaging of the upper extremity reveals full patency and normal vessel compressibility of the left jugular, left subclavian, left axillary, left brachial, left cephalic, left basilic, left radial and left ulnar. Doppler signals in the evaluated veins were normal. Prior Study: No prior study available for comparison. Upper Extremity Venous Duplex Side Vein Compress Spontaneous Flow Augment Left Jugular Normal Yes Phasic Yes Left Subclavian Normal Yes Phasic Yes Left Axillary Normal Yes Phasic Yes Left Brachial Normal Yes Phasic Yes Left Cephalic Normal Yes Phasic Yes Left Basilic Normal Yes Phasic Yes Left Radial Normal Yes Phasic Yes Left Ulnar Normal Yes Phasic Yes Right Subclavian Normal Yes Phasic Yes Updated by Mayco Swan MD on 03/12/2017 7:44:11 PM electronically signed on 03/12/2017 7:44:35 PM with status of Final
[2017-03-13] MEDS: Acetaminophen 325 MG TABLET PO PRN (00:09)
[2017-03-13 06:02] LABS: Basophils % 0.3 %; Eosinophils # 0.3 K/mcL (0.0-0.6); Eosinophils % 2.1 %; Hematocrit 26.6 % (35.3-44.9); Hemoglobin 8.8 g/dL (11.5-15.4); Immature Granulocytes % 4.1 % (0-4); Lymphocytes # 2.2 K/mcL (0.6-4.6); Lymphocytes % 15.1 %; Mean Corpuscular HGB Conc 33.1 g/dL (31.6-35.5); Mean Corpuscular Hemoglobin 29.6 pg (28.0-33.3); Mean Corpuscular Volume 89.6 fL (83.0-100.0); Mean Platelet Volume 9.9 fL (9.4-12.4); Monocytes # 1.5 K/mcL (0.0-1.3); Monocytes % 10.3 %; Platelet Count 260 K/mcL (140-400); Red Blood Count 2.97 M/mcL (3.82-4.97); Red Cell Distribution Width 14.6 % (11.5-14.5); Segmented Neutrophils % 68.1 %
[2017-03-13 06:12] LABS: INR 1.9; Prothrombin Time 21.4 Seconds (9.4-12.1)
[2017-03-13 06:15] LABS: Calcium 8.1 mg/dL (8.6-10.8); Magnesium 1.7 mg/dL (1.6-2.6); Potassium 3.6 mEq/L (3.5-4.5)
[2017-03-13 06:23] LABS: Neutrophils # 9.9 K/mcL (1.6-8.9)
[2017-03-13 07:07] LABS: Platelet Estimate Normal (Normal)
[2017-03-13] MEDS: Insulin LISPRO 300 UNITS/3 ML VIAL SQ SCH ×4 (07:53→22:31)
[2017-03-13] MEDS ORDERED: *HR* Phytonadione 5 MG TABLET PO ONE (09:22)
[2017-03-13] MEDS: metroNIDAZOLE 500 MG TABLET PO SCH ×3 (09:41→20:21)
[2017-03-13] MEDS: Metoprolol 100 MG TABLET PO SCH ×2 (09:41→20:21)
[2017-03-13] MEDS: *HR* Digoxin 0.125 MG TABLET PO SCH (09:42)
[2017-03-13] MEDS: amLODIPine 5 MG TABLET PO SCH (09:42)
[2017-03-13] MEDS ORDERED: SODIUM CHLORIDE/NAHCO3/KCL/PEG 4,000 ML SOLN.RECON PO ONE (17:00)
--- NOTE | 2017-03-13 17:46 | Internal Med Progress Note ---
Date of Encounter: 03/13/17 Time of Encounter: 11:00 - Assessment and plan (1) LESVIA (acute kidney injury) Current Visit: Yes Status: Acute Assessment and plan: renal function tets slowly improving. likely prerenal. elevated cpk, which is downtrending. monitor kidney function tests. avoid nephrotoxic agents. baseline creatinine 1.80-2. will continue monitoring. (2) Afib Current Visit: Yes Status: Chronic Assessment and plan: continue home meds. hold cumadin for now in anticipation o posuble endoscpi studies for anemia workup. vit k given today agan, goal for inr below 1.5 for tomorrow, if 1.5 of above, will give ffp 2 units. . Qualifiers: Atrial fibrillation type: paroxysmal Qualified Code(s): I48.0 - Paroxysmal atrial fibrillation (3) CKD (chronic kidney disease) Current Visit: Yes Status: Chronic Qualifiers: Chronic kidney disease stage: stage 3 (moderate) Qualified Code(s): N18.3 - Chronic kidney disease, stage 3 (moderate) (4) Diabetes mellitus Current Visit: Yes Status: Chronic Qualifiers: Diabetes mellitus type: type 2 Diabetes mellitus complication status: with neurologic complications Diabetes mellitus complication detail: with polyneuropathy Diabetes mellitus intermodal truck driver insulin use: without senior care use Qualified Code(s): E11.42 - Type 2 diabetes mellitus with diabetic polyneuropathy (5) GERD (gastroesophageal reflux disease) Current Visit: Yes Status: Chronic Qualifiers: Esophagitis presence: without esophagitis Qualified Code(s): K21.9 - Gastro -esophageal reflux disease without esophagitis (6) HTN (hypertension) Current Visit: Yes Status: Chronic Qualifiers: Hypertension type: essential hypertension Qualified Code(s): I10 - Essential (primary) hypertension (7) Dehydration Current Visit: No Status: Acute (8) Diarrhea Current Visit: No Status: Acute Qualifiers: Diarrhea type: unspecified type Qualified Code(s): R19.7 - Diarrhea, unspecified (9) Leukocytosis Current Visit: Yes Status: Acute Assessment and plan: slowly trending down, no uti, no pneumonia, no cellulitis, no c diff Qualifiers: Leukocytosis type: unspecified Qualified Code(s): D72.829 - Elevated white blood cell count, unspecified (10) Anemia Current Visit: Yes Status: Acute Assessment and plan: hb stable the last couple of day, althoguh she was initially hemoconcentrated s still lower than baseine, she is con AC at home, GI called and will plan for endoscopic studies ltomorrow. Qualifiers: Anemia type: iron deficiency Iron deficiency anemia type: unspecified iron deficiency Qualified Code(s): D50.9 - Iron deficiency anemia, unspecified - Subjective Interval history: feels better, today had diarrhea once, no nausea, still knee pain, seems chornic. - Constitutional Vitals: Temp Pulse Resp BP Pulse Ox 97.9 F 67 16 162/70 97 03/13/17 16:48 03/13/17 16:48 03/13/17 16:48 03/13/17 16:48 03/13/17 16:48 General appearance: Present: A&O X 3, pleasant, no acute distress - Head Head exam: Present: atraumatic, normocephalic - Eye Eye exam: Present: PERRL, conjuntiva pink, sclera anicteric Pupils: Present: PERRL - Neck Neck exam general surgery: Present: supple, trachea midline. Absent: lymphadenopathy - Respiratory Respiratory exam: Present: CTAB. Absent: accessory muscle use, rales, rhonchi, wheezes - Cardiovascular Cardiovascular exam: Present: RRR, +S1, +S2. Absent: diastolic murmur, gallop, rubs, systolic murmur - GI/Abdominal GI/Abdominal exam: Present: normal bowel sounds, soft, no peritoneal signs. Absent: distended, tenderness - Extremities Exam Extremities exam: Present: warm, radial pulses palpable and symetrical. Absent : calf tenderness, cyanotic, pedal edema - Neurological Exam Neurological exam: Present: CN II-XII intact, oriented X3, no focal deficits. Absent: pronater drift, facial droop, speech deficit - Skin Skin exam: Present: dry, intact Internal Medicine: Result - Labs CBC & Chem 7: 03/13/17 05:44 03/13/17 05:44 Labs: Short CBC 03/13/17 Range/Units 05:44 WBC 14.6 H (4.3-11.1) K/mcL Hgb 8.8 L (11.5-15.4) g/dL Hct 26.6 L (35.3-44.9) % Plt Count 260 (140-400) K/mcL Neutrophils # 9.9 H (1.6-8.9) K/mcL BMP 03/13/17 05:44 Sodium 137 Potassium 3.6 Chloride 111 H Carbon Dioxide 18 L BUN 31 H Creatinine 1.36 H Glucose 86 Calcium 8.1 L - ABG Interpretation ABG results: PT/INR, D-dimer PT 21.4 Seconds (9.4-12.1) H 03/13/17 05:44 Consult Discharge Plan - Plan Referrals: Karen Syed DO [Primary Care Provider] - (Patient will go to Rehab)
[2017-03-14 03:51] LABS: INR 1.8; Prothrombin Time 20.2 Seconds (9.4-12.1)
[2017-03-14 04:18] LABS: Basophils % 0.3 %; Eosinophils # 0.3 K/mcL (0.0-0.6); Eosinophils % 1.7 %; Hematocrit 26.4 % (35.3-44.9); Hemoglobin 8.7 g/dL (11.5-15.4); Immature Granulocytes % 5.1 % (0-4); Lymphocytes % 12.6 %; Mean Corpuscular Hemoglobin 29.2 pg (28.0-33.3); Mean Corpuscular Volume 88.6 fL (83.0-100.0); Mean Platelet Volume 9.8 fL (9.4-12.4); Monocytes # 1.4 K/mcL (0.0-1.3); Monocytes % 9.6 %; Neutrophils # 10.4 K/mcL (1.6-8.9); Platelet Count 327 K/mcL (140-400); Red Blood Count 2.98 M/mcL (3.82-4.97); Red Cell Distribution Width 14.7 % (11.5-14.5); Segmented Neutrophils % 70.7 %
[2017-03-14 05:31] LABS: Potassium 3.4 mEq/L (3.5-4.5)
[2017-03-14 05:32] LABS: Lymphocytes # 1.9 K/mcL (0.6-4.6)
[2017-03-14] MEDS ORDERED: 0.9 % Sodium Chloride 1,000 ML ONE (05:38)
[2017-03-14 06:17] LABS: Platelet Estimate Normal (Normal); Smudge Cells Present (Not Present)
[2017-03-14] MEDS: amLODIPine 5 MG TABLET PO SCH (08:19)
[2017-03-14] MEDS: metroNIDAZOLE 500 MG TABLET PO SCH (08:19)
[2017-03-14] MEDS: Metoprolol 100 MG TABLET PO SCH ×2 (08:19→20:49)
[2017-03-14] MEDS: *HR* Digoxin 0.125 MG TABLET PO SCH (08:19)
[2017-03-14] MEDS: Insulin LISPRO 300 UNITS/3 ML VIAL SQ SCH ×3 (08:37→17:34)
[2017-03-14] MEDS ORDERED: Magnesium Sulfate 1 GM in D5% in Water 100 ML IVPB ONE (09:48)
[2017-03-14] MEDS ORDERED: Potassium Chloride 40 MEQ, Lidocaine 1% 2 ML in D5% in Water 500 ML IVPB ONE (09:48)
[2017-03-14 09:51] LABS: INR 1.7; Prothrombin Time 18.8 Seconds (9.4-12.1)
[2017-03-14] MEDS ORDERED: Furosemide 20 MG/2 ML VIAL IVP ONE (12:22)
[2017-03-14] MEDS ORDERED: *HR* Midazolam HCl 5 MG/5 ML VIAL IVP ONE (17:45)
[2017-03-14] MEDS ORDERED: *HR* FentaNYL (PF) 100 MCG/2 ML VIAL ONE (17:46)
[2017-03-14] MEDS ORDERED: Simethicone 40 MG/0.6 ML MLS IR ONE (17:47)
[2017-03-14] MEDS ORDERED: Tetracaine/Benzocaine/Butamben 200MG/SPRAY (100SPY/BOT) MM ONE (17:47)
--- NOTE | 2017-03-14 17:48 | Pre-Sedation Evaluation ---
Pre-sedation evaluation - Pre-sedation checklist Date of procedure: 03/14/17 Procedure: colonoscopy/egd Recent Vitals: Last Vital Signs Temp 97.5 F L 03/14/17 17:44 Pulse 60 03/14/17 17:44 Resp 16 03/14/17 17:44 BP 150/60 03/14/17 17:44 Pulse Ox 96 03/14/17 17:44 H&P (including ROS) documented in medical record: Yes Previous reaction to sedatives/anesthetics: No Dietary Status: NPO after Midnight Dentition: dentures removed ASA Classification *see protocol: CLASS III-Severe systemic disease Plan of Care: Pt appropriate candidate for procedure/moderate/conscious sedation , Risks/benefits of procedure/sedation discussed w/ patient/family
[2017-03-14] MEDS: *HR* Midazolam HCl 5 MG/5 ML VIAL IVP PRN ×2 (17:50→18:05)
[2017-03-14] MEDS: *HR* FentaNYL (PF) 100 MCG/2 ML VIAL IVP PRN ×2 (17:50→18:05)
--- NOTE | 2017-03-14 18:09 | Internal Med Progress Note ---
Date of Encounter: 03/14/17 Time of Encounter: 12:45 - Assessment and plan (1) LESVIA (acute kidney injury) Current Visit: Yes Status: Acute Assessment and plan: renal function tets back to normal likely prerenal. elevated cpk initially, which has been corrected. monitor kidney function tests. avoid nephrotoxic agents. baseline creatinine 1.80-2. will continue monitoring. possible d/c to ecf tomorrow if stable. (2) Afib Current Visit: Yes Status: Chronic Assessment and plan: continue home meds. hold cumadin for now in anticipation endoscpi studies for anemia workup. Qualifiers: Atrial fibrillation type: paroxysmal Qualified Code(s): I48.0 - Paroxysmal atrial fibrillation (3) CKD (chronic kidney disease) Current Visit: Yes Status: Chronic Qualifiers: Chronic kidney disease stage: stage 3 (moderate) Qualified Code(s): N18.3 - Chronic kidney disease, stage 3 (moderate) (4) Diabetes mellitus Current Visit: Yes Status: Chronic Assessment and plan: insulin therapy. glucose stable. Qualifiers: Diabetes mellitus type: type 2 Diabetes mellitus complication status: with neurologic complications Diabetes mellitus complication detail: with polyneuropathy Diabetes mellitus intermediate insulin use: without intermediate use Qualified Code(s): E11.42 - Type 2 diabetes mellitus with diabetic polyneuropathy (5) GERD (gastroesophageal reflux disease) Current Visit: Yes Status: Chronic Qualifiers: Esophagitis presence: without esophagitis Qualified Code(s): K21.9 - Gastro -esophageal reflux disease without esophagitis (6) HTN (hypertension) Current Visit: Yes Status: Chronic Qualifiers: Hypertension type: essential hypertension Qualified Code(s): I10 - Essential (primary) hypertension (7) Dehydration Current Visit: No Status: Acute (8) Diarrhea Current Visit: No Status: Acute Qualifiers: Diarrhea type: unspecified type Qualified Code(s): R19.7 - Diarrhea, unspecified (9) Leukocytosis Current Visit: Yes Status: Acute Assessment and plan: slowly trending down, no uti, no pneumonia, no cellulitis, no c diff, carmen d/c antibiotics, consider other eriologies for leukocytosis, even CLL should b in the diffrecntial diagnosis, patint will benefit from an outpatient evaluation by hem-onc. Qualifiers: Leukocytosis type: unspecified Qualified Code(s): D72.829 - Elevated white blood cell count, unspecified (10) Anemia Current Visit: Yes Status: Acute Qualifiers: Anemia type: iron deficiency Iron deficiency anemia type: unspecified iron deficiency Qualified Code(s): D50.9 - Iron deficiency anemia, unspecified - Subjective Interval history: pleasant, edema of lower extremities, still knee pain, seems chornic. - Constitutional Vitals: Temp Pulse Resp BP Pulse Ox 97.5 F L 60 16 153/88 96 03/14/17 17:55 03/14/17 18:05 03/14/17 18:05 03/14/17 18:05 03/14/17 18:05 General appearance: Present: A&O X 3, pleasant, no acute distress - Head Head exam: Present: atraumatic, normocephalic - Eye Eye exam: Present: PERRL, conjuntiva pink, sclera anicteric Pupils: Present: PERRL - Neck Neck exam general surgery: Present: supple, trachea midline. Absent: lymphadenopathy - Respiratory Respiratory exam: Present: CTAB. Absent: accessory muscle use, rales, rhonchi, wheezes - Cardiovascular Cardiovascular exam: Present: RRR, +S1, +S2. Absent: diastolic murmur, gallop, rubs, systolic murmur - GI/Abdominal GI/Abdominal exam: Present: normal bowel sounds, soft, no peritoneal signs. Absent: distended, tenderness - Extremities Exam Extremities exam: Present: warm, radial pulses palpable and symetrical. Absent : calf tenderness, cyanotic, pedal edema - Neurological Exam Neurological exam: Present: CN II-XII intact, oriented X3, no focal deficits. Absent: pronater drift, facial droop, speech deficit - Skin Skin exam: Present: dry, intact Internal Medicine: Result - Labs CBC & Chem 7: 03/14/17 03:20 03/14/17 03:20 Labs: Short CBC 03/14/17 Range/Units 03:20 WBC 14.7 H (4.3-11.1) K/mcL Hgb 8.7 L (11.5-15.4) g/dL Hct 26.4 L (35.3-44.9) % Plt Count 327 (140-400) K/mcL Neutrophils # 10.4 H (1.6-8.9) K/mcL BMP 03/14/17 03:20 Sodium 134 L Potassium 3.4 L Chloride 108 Carbon Dioxide 17 L BUN 21 H D Creatinine 1.07 Glucose 76 Calcium 8.0 L - ABG Interpretation ABG results: PT/INR, D-dimer PT 18.8 Seconds (9.4-12.1) H 03/14/17 09:33 - VTE Documentation of Mechanical Device: Intermittent pneumatic compression device Consult Discharge Plan - Plan Referrals: Karen Syed DO [Primary Care Provider] - (Patient will go to Rehab)
[2017-03-15] MEDS: Insulin LISPRO 300 UNITS/3 ML VIAL SQ SCH ×3 (00:12→11:38)
[2017-03-15 04:45] LABS: INR 1.8; Prothrombin Time 20.1 Seconds (9.4-12.1)
[2017-03-15 04:53] LABS: Basophils % 0.3 %; Eosinophils # 0.2 K/mcL (0.0-0.6); Eosinophils % 1.5 %; Hematocrit 26.4 % (35.3-44.9); Hemoglobin 8.7 g/dL (11.5-15.4); Immature Granulocytes % 2.8 % (0-4); Lymphocytes # 1.6 K/mcL (0.6-4.6); Lymphocytes % 11.8 %; Mean Corpuscular Hemoglobin 29.1 pg (28.0-33.3); Mean Corpuscular Volume 88.3 fL (83.0-100.0); Mean Platelet Volume 9.4 fL (9.4-12.4); Monocytes # 1.2 K/mcL (0.0-1.3); Monocytes % 8.4 %; Neutrophils # 10.4 K/mcL (1.6-8.9); Platelet Count 348 K/mcL (140-400); Red Blood Count 2.99 M/mcL (3.82-4.97); Red Cell Distribution Width 14.5 % (11.5-14.5); Segmented Neutrophils % 75.2 %
[2017-03-15 05:02] LABS: BUN/Creatinine Ratio 18 (6-26); Blood Urea Nitrogen 18 mg/dL (7-20); Calcium 8.1 mg/dL (8.6-10.8); Carbon Dioxide 21 mEq/L (19-29); Chloride 108 mEq/L (98-109); Glucose 85 mg/dL (70-99); Osmolality,Calculated 283 (280-300); Potassium 3.5 mEq/L (3.5-4.5); Sodium 136 mEq/L (136-145); eGFR For African Americans > 60 (> 60); eGFR For Non-African Americans 53 (> 60)
[2017-03-15] MEDS: Metoprolol 100 MG TABLET PO SCH (08:32)
[2017-03-15] MEDS: amLODIPine 5 MG TABLET PO SCH (08:32)
[2017-03-15] MEDS: *HR* Digoxin 0.125 MG TABLET PO SCH (08:33)
[2017-03-15] MEDS ORDERED: Furosemide 20 MG/2 ML VIAL IVP ONE (09:47)
--- NOTE | 2017-03-15 11:16 | Discharge Summary ---
Date of Encounter: 03/15/17 Time of Encounter: 11:14 - Discharge Diagnosis (1) LESVIA (acute kidney injury) Priority: Primary Status: Acute (2) Afib Priority: Secondary Status: Chronic Qualifiers: Atrial fibrillation type: paroxysmal Qualified Code(s): I48.0 - Paroxysmal atrial fibrillation (3) CKD (chronic kidney disease) Priority: Secondary Status: Chronic Qualifiers: Chronic kidney disease stage: stage 3 (moderate) Qualified Code(s): N18.3 - Chronic kidney disease, stage 3 (moderate) (4) Diabetes mellitus Priority: Secondary Status: Chronic Qualifiers: Diabetes mellitus type: type 2 Diabetes mellitus complication status: with neurologic complications Diabetes mellitus complication detail: with polyneuropathy 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 Qualified Code(s): E11.42 - Type 2 diabetes mellitus with diabetic polyneuropathy (5) GERD (gastroesophageal reflux disease) Priority: Secondary Status: Chronic Qualifiers: Esophagitis presence: without esophagitis Qualified Code(s): K21.9 - Gastro -esophageal reflux disease without esophagitis (6) HTN (hypertension) Priority: Secondary Status: Chronic Qualifiers: Hypertension type: essential hypertension Qualified Code(s): I10 - Essential (primary) hypertension (7) Dehydration Priority: Secondary Status: Acute (8) Diarrhea Priority: Secondary Status: Acute Qualifiers: Diarrhea type: unspecified type Qualified Code(s): R19.7 - Diarrhea, unspecified (9) Leukocytosis Priority: Secondary Status: Acute Qualifiers: Leukocytosis type: unspecified Qualified Code(s): D72.829 - Elevated white blood cell count, unspecified (10) Anemia Priority: Secondary Status: Acute Qualifiers: Anemia type: iron deficiency Iron deficiency anemia type: unspecified iron deficiency Qualified Code(s): D50.9 - Iron deficiency anemia, unspecified - Discharge Medications Home Medications: Digoxin [Lanoxin] 0.125 mg PO DAILY 08/26/15 [History] Furosemide [Lasix] 40 mg PO Q48H 08/26/15 [History] Metoprolol [Lopressor] 100 mg PO BID 08/26/15 [History] Propafenone [Rhythmol] 150 mg PO TID 08/26/15 [History] Warfarin [Coumadin] 3 mg PO DAILY 08/26/15 [History] amLODIPine [Norvasc] 2.5 mg PO DAILY 08/26/15 [History] Allopurinol [Zyloprim 100 MG] 100 mg PO BID 03/09/17 [History] Allergies/Adverse Reactions: Allergies No Known Allergies Allergy (Verified 03/08/17 19:40) Date of admission: 03/09/17 02:28 Primary care physician: Mauricio Warren Consults: 03/09/17 09:09 Consult to Physical Therapy [CONS] Routine Comment: Evaluate, develop and implement POC Reason for Consult: eval an treatment OT [Consult to Occupational Therapy] [CONS] Routine Comment: Evaluate, develop and implement POC Reason for Consult: eval an treatment 03/09/17 11:17 Consult to Data Examination Clerk [CONS] Routine Reason for SW Consult: Discharge planning. From home alone, multiple falls at home, weak. 03/12/17 08:35 Consult to Gastroenterology [CONS] Routine Consulting Provider: Suzie Dennis Reason for Consult: anemia, hb drop, patient on coumadin Call Completed: No Discharging clinician: Dylan Bar Anticipated date of discharge: 03/15/17 - Patient Status Disposition: Transfer SNF Condition: Fair Functional capacity at discharge: uses cane/walker Overall status at discharge: patient is progressing back to baseline - Discharge Instructions Follow Up With: Karen Syed DO [Primary Care Provider] - (Patient will go to Rehab) Additional Instructions: Hematology follow up due to leukocytosis and evidence of smudge cells. GI follow up for biopsy results. Cardiology follow up with DR. Dumont. PCP follow up. - Diet and Activity Activity: as per physical therapy Diet: diabetic diet Interval History: Ms. Barr is a 81 year old female with a history of CKD stage [address] up [address] Miller was transferred here for Rhabdomyolysis from [facility]. She reports that she fell without injury on Saturday morning at around 3 AM but that she was unable to get up off the floor until Saturday at 3pm in the afternoon. She subsequently has been having persistent diarrhea which she has had difficulty in controlling. She reports having 3-4 liquid stools a day without blood or mucus. She denies intake of solid food this week but has been taking lemonade. She denies abdominal pain, fever or chills. On the day of presentation she was sitting on the toilet seat for about an hour and was too weak to get off the seat, EMS had to assist her off the toilet seat and take her to [facility] for evaluation where she was found to have extreme dehydration with LESVIA and rhabdomyolysis. Hospital course: Ms. Barr is a 81 year old female initially admitted to acute kidney injury in the setting of rhabdomyolysis. Her kidney function tests and CPK levels were elevated upon admission, however with IV hydration both have improved nicely. She was also on statins at home, we will stop statins upon discharge, will hold januvia for 2 weeks as well. To follow up with her PCP. Nephrotoxic agents were also avoided. Current creatinine and BUN are within normal limits. She also has a history of atrial fibrillation on both rythmol and anticoagulation. Coumadin was hold for a few days due to workup for anemia since her hemoglobin was 8.6. However hemoglobin has been stable she was found to have gastric ulcers. Biopsies were taken. We will keep her by mouth PPIs to continue as outpatient. She will follow up with the biopsy results. In light of A. fib and high [id number] score will be and resume her Coumadin and monitor her hemoglobin as outpatient. The patient follows up with cardiology with Dr. Dumont. We will try to arrange a close follow-up with cardiology for her management of her atrial fibrillation. Additionally, the patient had leukocytosis from the beginning, we find a definitive source of infection. There was no evidence of pneumonia, no UTI, although she had diarrhea C. difficile colitis was ruled out. She has been stable, no fever. In one of the CBC was drawn smudge cells which could be consistent and concerning for chronic lymphocytic leukemia. I discussed this possibility with the patient and we will recommend an outpatient follow-up with hematology for the same. Antibiotics were stopped yesterday, she was on both Rocephin and flagyl. She has been stable, is a very pleasant lady. We will resume her home medications including her articulation. We will stop her statins. The patient was evaluated by physical therapy, they recommended placement to an extended care facility. - Time Spent with Patient Total time spent providing and/or coordinating discharge services: - Constitutional Vitals: Temp Pulse Resp BP Pulse Ox 98.2 F 61 16 163/64 94 03/15/17 07:27 03/15/17 07:27 03/15/17 07:27 03/15/17 07:27 03/15/17 07:27 General appearance: Present: A&O X 3, pleasant, no acute distress - Head Head exam: Present: atraumatic, normocephalic - Eye Eye exam: Present: PERRL, conjuntiva pink, sclera anicteric Pupils: Present: PERRL - Neck Neck exam general surgery: Present: supple, trachea midline. Absent: lymphadenopathy - Respiratory Respiratory exam: Present: CTAB. Absent: accessory muscle use, rales, rhonchi, wheezes - Cardiovascular Cardiovascular exam: Present: RRR, +S1, +S2. Absent: diastolic murmur, gallop, rubs, systolic murmur - GI/Abdominal GI/Abdominal exam: Present: normal bowel sounds, soft, no peritoneal signs. Absent: distended, tenderness - Extremities Exam Extremities exam: Present: warm, radial pulses palpable and symetrical. Absent : calf tenderness, cyanotic, pedal edema - Neurological Exam Neurological exam: Present: CN II-XII intact, oriented X3, no focal deficits. Absent: pronater drift, facial droop, speech deficit - Skin Skin exam: Present: dry, intact - VTE Documentation of Mechanical Device: Intermittent pneumatic compression device
[2017-03-15 11:19] VITALS: BP 167/70
--- NOTE | 2017-03-15 13:20 | Physician Discharge Referral ---
ExtendedCare Referral Info Transfer To: [facility] - Diagnosis (1) LESVIA (acute kidney injury) Status: Acute (2) Afib Status: Chronic (3) CKD (chronic kidney disease) Status: Chronic (4) Diabetes mellitus Status: Chronic (5) GERD (gastroesophageal reflux disease) Status: Chronic (6) HTN (hypertension) Status: Chronic (7) Dehydration Status: Acute (8) Diarrhea Status: Acute (9) Leukocytosis Status: Acute (10) Anemia Status: Acute - Transfer Medications Home Medications: Digoxin [Lanoxin] 0.125 mg PO DAILY 08/26/15 [History] Furosemide [Lasix] 40 mg PO Q48H 08/26/15 [History] Metoprolol [Lopressor] 100 mg PO BID 08/26/15 [History] Propafenone [Rhythmol] 150 mg PO TID 08/26/15 [History] Warfarin [Coumadin] 3 mg PO DAILY 08/26/15 [History] amLODIPine [Norvasc] 2.5 mg PO DAILY 08/26/15 [History] Allopurinol [Zyloprim 100 MG] 100 mg PO BID 03/09/17 [History] Allergies/Adverse Reactions: Allergies No Known Allergies Allergy (Verified 03/08/17 19:40) - Respiratory Orders Smoking Cessation: Smoking cessation has been advised. For more information, call the [place] Tobacco Quit Line at 2-829-TUKANOW. - Advance Directives Code Status: Full Code - Mobility Orders Other (As per PT) - Rehabiliation Orders Rehab Potential: Fair Rehab Orders: Evaluation for Physical Therapy, Evaluation for Occupational Therapy - Treatments Skin tear care topically daily PRN per policy - Diet Orders Cardiac CERTIFICATION: I certify that the transfer of the above named patient to an Extended Care Facility is necessary for the continuing treatment of the diagnosis listed. The above information is true and accurate reflection of patient's current condition. Confidential - Redisclosure prohibited without a patient's written consent.
[2017-03-16 22:51] LABS: C282Y Hemochromatosis Mutation HETEROZYGOUS; H63D Hemochromatosis Mutation NEGATIVE; HFE Specimen Type WHOLE BLOOD; S65C Hemochromatosis Mutation NEGATIVE
== END 2017-03-15 14:59 | DRG 683 ==
LOC: 2ANU
PROVIDERS: ADMIT Internal Medicine; ATTEND Internal Medicine
PROC: ENDOEBX (2017-03-14 17:00)

== ENCOUNTER 2020-01-05 11:21 | Inpatient (IN) ==
[2020-01-05] MEDS ORDERED: Naloxone 0.4 MG/ML INJ IVP PRN (13:43)
[2020-01-05] MEDS ORDERED: Albumin 25% 25gram/100mL 25 GM/100 ML IV.SOLN IVPB ONE (14:32)
[2020-01-05] MEDS ORDERED: Bumetanide 1 MG/4 ML VIAL IVP ONE (14:35)
[2020-01-05] MEDS ORDERED: Warfarin perPT PO PRN (18:00)
[2020-01-05] MEDS ORDERED: *HR* Warfarin 3 MG TABLET PO ONE (18:00)
[2020-01-05] MEDS: allopurinoL 100 MG TABLET PO SCH (21:01)
[2020-01-06 06:44] LABS: INR 1.8; Prothrombin Time 20.4 Seconds (9.4-12.1)
[2020-01-06 06:47] LABS: Basophils # 0.1 K/mcL (0.0-0.2); Basophils % 0.5 %; Eosinophils # 0.2 K/mcL (0.0-0.6); Eosinophils % 1.7 %; Hematocrit 21.4 % (35.3-44.9); Hemoglobin 6.7 g/dL (11.5-15.4); Immature Granulocytes % 0.5 % (0-4); Lymphocytes # 1.6 K/mcL (0.6-4.6); Lymphocytes % 17.2 %; Mean Corpuscular HGB Conc 31.3 g/dL (31.6-35.5); Mean Platelet Volume 9.2 fL (9.4-12.4); Monocytes # 1.3 K/mcL (0.0-1.3); Monocytes % 13.7 %; Neutrophils # 6.2 K/mcL (1.6-8.9); Platelet Count 342 K/mcL (140-400); Red Blood Count 2.23 M/mcL (3.82-4.97); Red Cell Distribution Width 14.5 % (11.5-14.5); Segmented Neutrophils % 66.4 %; White Blood Count 9.3 K/mcL (4.3-11.1)
[2020-01-06 07:07] LABS: Calcium 8.5 mg/dL (8.6-10.3); Potassium 4.2 mEq/L (3.5-5.1)
[2020-01-06] MEDS ORDERED: Furosemide 20 MG/2 ML VIAL IV ONE (08:28)
[2020-01-06] MEDS ORDERED: 0.9 % Sodium Chloride 250 ML IVC SCH (08:30)
[2020-01-06] MEDS: allopurinoL 100 MG TABLET PO SCH ×2 (08:36→21:00)
[2020-01-06] MEDS: DilTIAZem CD (24hr) 120 MG CAP.ER.24H PO SCH (08:36)
[2020-01-06] MEDS ORDERED: Bumetanide 1 MG TABLET PO SCH (09:00)
[2020-01-06 09:58] LABS: Hematocrit 24.1 % (35.3-44.9); Hemoglobin 7.6 g/dL (11.5-15.4)
[2020-01-06] MEDS ORDERED: Isovue-370 500 ML BOTTLE IVP ONE (12:42)
[2020-01-06 14:42] LABS: Estimated Average Glucose 134 mg/dl
[2020-01-06 17:32] LABS: Hematocrit 24.1 % (35.3-44.9); Hemoglobin 7.9 g/dL (11.5-15.4)
[2020-01-06 18:37] LABS: % Iron Saturation 17 % (15-50); Iron 46 mcg/dL (50-170); Transferrin 193 mg/dL (203-362)
[2020-01-06 18:46] LABS: Ferritin 133 ng/mL (10-120)
[2020-01-06 21:37] LABS: Hematocrit 25.2 % (35.3-44.9); Hemoglobin 7.9 g/dL (11.5-15.4)
[2020-01-06] MEDS: Albumin 25% 25gram/100mL 25 GM/100 ML IV.SOLN IVPB SCH (22:46)
[2020-01-06] MEDS: Bumetanide 1 MG/4 ML VIAL IVP SCH (22:48)
[2020-01-07 05:15] LABS: Hematocrit 26.3 % (35.3-44.9); Hemoglobin 8.3 g/dL (11.5-15.4); Mean Corpuscular HGB Conc 31.6 g/dL (31.6-35.5); Mean Corpuscular Hemoglobin 29.6 pg (28.0-33.3); Mean Corpuscular Volume 93.9 fL (83.0-100.0); Mean Platelet Volume 9.1 fL (9.4-12.4); Platelet Count 363 K/mcL (140-400); Red Cell Distribution Width 14.6 % (11.5-14.5); White Blood Count 11.8 K/mcL (4.3-11.1)
[2020-01-07 05:32] LABS: Potassium 3.9 mEq/L (3.5-5.1)
[2020-01-07] MEDS: Albumin 25% 25gram/100mL 25 GM/100 ML IV.SOLN IVPB SCH ×2 (07:53→23:20)
[2020-01-07] MEDS: allopurinoL 100 MG TABLET PO SCH ×2 (07:54→23:19)
[2020-01-07] MEDS: Bumetanide 1 MG/4 ML VIAL IVP SCH ×2 (07:54→23:19)
[2020-01-07] MEDS: DilTIAZem CD (24hr) 120 MG CAP.ER.24H PO SCH (07:54)
[2020-01-07] MEDS: Metoprolol 100 MG TABLET PO SCH ×2 (10:21→23:19)
[2020-01-07] MEDS: Cefepime HCl 2,000 MG in Water for inj. (sterile) 20 ML IVP SCH (14:50)
[2020-01-07] MEDS ORDERED: 0.9 % Sodium Chloride Mini Bag 100 ML ONE (17:07)
[2020-01-07] MEDS: Doxycycline 100 MG in 0.9 % Sodium Chloride Mini Bag 100 ML IVPB SCH (17:09)
[2020-01-07 23:57] LABS: Bilirubin,Urine Negative (Negative); Blood,Urine Negative (Negative); Clarity,Urine Clear (Clear); Color,Urine Yellow (Yellow); Glucose,Urine (UA) Normal (Normal); Ketones,Urine Negative (Negative); Leukocyte Esterase,Urine Negative (Negative); Nitrite,Urine Negative (Negative); Protein,Urine 30 mg/dL (Neg-Trace); Urobilinogen,Urine Normal (Normal)
[2020-01-08] LABS: Bacteria,Urine None Seen per hpf (None-Few); Hyaline Casts,Urine None Seen per lpf (None-Few); RBC,Urine 0-3 per hpf (0-3); Squamous Epithelial Cell,Urine Many per lpf (None-Few); WBC,Urine 0-3 per hpf (0-3)
[2020-01-08] MEDS: Doxycycline 100 MG in 0.9 % Sodium Chloride Mini Bag 100 ML IVPB SCH ×2 (06:06→19:59)
[2020-01-08] MEDS: Metoprolol 100 MG TABLET PO SCH ×2 (09:47→19:57)
[2020-01-08] MEDS: DilTIAZem CD (24hr) 120 MG CAP.ER.24H PO SCH (09:47)
[2020-01-08] MEDS: allopurinoL 100 MG TABLET PO SCH ×2 (09:47→19:57)
[2020-01-08] MEDS: Albumin 25% 25gram/100mL 25 GM/100 ML IV.SOLN IVPB SCH (09:47)
[2020-01-08 09:55] LABS: Hematocrit 25.9 % (35.3-44.9); Hemoglobin 8.3 g/dL (11.5-15.4); Mean Corpuscular Volume 93.5 fL (83.0-100.0); Mean Platelet Volume 8.7 fL (9.4-12.4); Platelet Count 287 K/mcL (140-400); Red Blood Count 2.77 M/mcL (3.82-4.97); Red Cell Distribution Width 14.2 % (11.5-14.5); White Blood Count 10.1 K/mcL (4.3-11.1)
[2020-01-08 10:03] LABS: INR 1.6; Prothrombin Time 17.8 Seconds (9.4-12.1)
[2020-01-08 10:17] LABS: Calcium 8.9 mg/dL (8.6-10.3); Potassium 3.8 mEq/L (3.5-5.1)
[2020-01-08] MEDS: Cefepime HCl 2,000 MG in Water for inj. (sterile) 20 ML IVP SCH (16:29)
[2020-01-08] MEDS ORDERED: *HR* Propofol 200 MG/20 ML VIAL IVP ONE ×2 (18:29)
[2020-01-08] MEDS ORDERED: Dexamethasone 4 MG/ML VIAL ONE (18:29)
[2020-01-08] MEDS ORDERED: *HR* Midazolam HCl 2 MG/2 ML VIAL ONE (18:29)
[2020-01-08] MEDS ORDERED: Ondansetron 4 MG/2 ML VIAL ONE (18:29)
[2020-01-08] MEDS ORDERED: *HR* FentaNYL (PF) 100 MCG/2 ML VIAL ONE (18:29)
[2020-01-08] MEDS ORDERED: Lidocaine -MPF 2% 2 ML VIAL ONE (18:29)
[2020-01-08] MEDS ORDERED: Lidocaine -MPF 4% 5 ML AMPUL ONE (19:31)
[2020-01-09 04:10] LABS: Mean Corpuscular Hemoglobin 30.1 pg (28.0-33.3); Mean Platelet Volume 9.2 fL (9.4-12.4); Platelet Count 298 K/mcL (140-400); Red Blood Count 2.66 M/mcL (3.82-4.97); Red Cell Distribution Width 14.2 % (11.5-14.5); White Blood Count 10.3 K/mcL (4.3-11.1)
[2020-01-09 04:21] LABS: INR 1.6; Prothrombin Time 18.4 Seconds (9.4-12.1)
[2020-01-09 04:30] LABS: Potassium 3.9 mEq/L (3.5-5.1)
[2020-01-09] MEDS: Doxycycline 100 MG in 0.9 % Sodium Chloride Mini Bag 100 ML IVPB SCH (05:55)
[2020-01-09] MEDS ORDERED: DilTIAZem CD (24hr) 120 MG CAP.ER.24H PO ONE (08:27)
[2020-01-09] MEDS ORDERED: allopurinoL 100 MG TABLET ONE (08:27)
[2020-01-09] MEDS ORDERED: Metoprolol 100 MG TABLET ONE (08:27)
[2020-01-09] MEDS ORDERED: Bumetanide 1 MG TABLET ONE (08:27)
[2020-01-09] MEDS ORDERED: Benzonatate 100 MG CAPSULE PO ONE (11:03)
[2020-01-09] MEDS ORDERED: Insulin LISPRO 300 UNITS/3 ML VIAL SQ ONE (12:18)
[2020-01-09] MEDS ORDERED: Benzonatate 100 MG CAPSULE PO PRN (15:18)
[2020-01-09] MEDS ORDERED: D5% in Water 1,000 ML IVC PRN (15:19)
[2020-01-09] MEDS ORDERED: *HR* Dextrose 50 % in Water (Syg) 50 ML SYRINGE IVP PRN (15:19)
[2020-01-09] MEDS ORDERED: Dextrose Gel 15 GM/37.5 ML TUBE PO PRN ×2 (15:19)
[2020-01-09] MEDS: Bumetanide 1 MG TABLET PO SCH (16:33)
[2020-01-09] MEDS: Metoprolol 100 MG TABLET PO SCH ×2 (16:33→20:06)
[2020-01-09] MEDS: DilTIAZem CD (24hr) 120 MG CAP.ER.24H PO SCH (16:33)
[2020-01-09] MEDS: allopurinoL 100 MG TABLET PO SCH ×2 (16:34→20:06)
[2020-01-09] MEDS: Cefepime HCl 2,000 MG in Water for inj. (sterile) 20 ML IVP SCH (16:34)
[2020-01-09] MEDS: Insulin LISPRO 300 UNITS/3 ML VIAL SQ SCH (17:34)
[2020-01-09] MEDS: Ampicillin 1,000 MG in 0.9 % Sodium Chloride Mini Bag 100 ML IVPB SCH ×2 (18:29→23:56)
[2020-01-09] MEDS: Benzonatate 100 MG CAPSULE PO SCH ×2 (18:30→20:06)
[2020-01-10 03:11] LABS: Hematocrit 25.1 % (35.3-44.9); Mean Corpuscular HGB Conc 31.9 g/dL (31.6-35.5); Platelet Count 298 K/mcL (140-400); Red Blood Count 2.67 M/mcL (3.82-4.97); Red Cell Distribution Width 14.3 % (11.5-14.5); White Blood Count 10.4 K/mcL (4.3-11.1)
[2020-01-10 03:26] LABS: Calcium 8.6 mg/dL (8.6-10.3); Potassium 3.5 mEq/L (3.5-5.1)
[2020-01-10] MEDS: Ampicillin 1,000 MG in 0.9 % Sodium Chloride Mini Bag 100 ML IVPB SCH ×4 (05:22→23:09)
[2020-01-10] MEDS: DilTIAZem CD (24hr) 120 MG CAP.ER.24H PO SCH (07:30)
[2020-01-10] MEDS: Bumetanide 1 MG TABLET PO SCH (07:30)
[2020-01-10] MEDS: Metoprolol 100 MG TABLET PO SCH ×2 (07:31→20:41)
[2020-01-10] MEDS: Benzonatate 100 MG CAPSULE PO SCH ×4 (07:31→20:41)
[2020-01-10] MEDS: allopurinoL 100 MG TABLET PO SCH ×2 (07:31→20:41)
[2020-01-10] MEDS: Insulin LISPRO 300 UNITS/3 ML VIAL SQ SCH ×3 (07:34→17:33)
[2020-01-10 10:32] LABS: INR 1.6; Prothrombin Time 17.7 Seconds (9.4-12.1)
[2020-01-11 01:06] LABS: Hematocrit 28.7 % (35.3-44.9); Hemoglobin 9.1 g/dL (11.5-15.4); Mean Corpuscular HGB Conc 31.7 g/dL (31.6-35.5); Mean Corpuscular Hemoglobin 29.8 pg (28.0-33.3); Mean Corpuscular Volume 94.1 fL (83.0-100.0); Mean Platelet Volume 9.2 fL (9.4-12.4); Platelet Count 403 K/mcL (140-400); Red Blood Count 3.05 M/mcL (3.82-4.97); Red Cell Distribution Width 14.5 % (11.5-14.5); White Blood Count 12.9 K/mcL (4.3-11.1)
[2020-01-11 01:22] LABS: Potassium 3.6 mEq/L (3.5-5.1)
[2020-01-11] MEDS: Ampicillin 1,000 MG in 0.9 % Sodium Chloride Mini Bag 100 ML IVPB SCH ×4 (05:10→23:07)
[2020-01-11] MEDS: Insulin LISPRO 300 UNITS/3 ML VIAL SQ SCH ×3 (07:36→17:23)
[2020-01-11] MEDS: Bumetanide 1 MG TABLET PO SCH (08:47)
[2020-01-11] MEDS: Metoprolol 100 MG TABLET PO SCH ×2 (08:47→21:38)
[2020-01-11] MEDS: DilTIAZem CD (24hr) 120 MG CAP.ER.24H PO SCH (08:47)
[2020-01-11] MEDS: Benzonatate 100 MG CAPSULE PO SCH ×4 (08:47→21:34)
[2020-01-11] MEDS: allopurinoL 100 MG TABLET PO SCH ×2 (08:47→21:34)
[2020-01-12 04:48] LABS: Hematocrit 25.3 % (35.3-44.9); Hemoglobin 8.2 g/dL (11.5-15.4); Mean Corpuscular HGB Conc 32.4 g/dL (31.6-35.5); Mean Corpuscular Hemoglobin 31.8 pg (28.0-33.3); Mean Corpuscular Volume 98.1 fL (83.0-100.0); Mean Platelet Volume 9.7 fL (9.4-12.4); Platelet Count 280 K/mcL (140-400); Red Blood Count 2.58 M/mcL (3.82-4.97); Red Cell Distribution Width 14.6 % (11.5-14.5)
[2020-01-12 05:09] LABS: Calcium 8.4 mg/dL (8.6-10.3); Potassium 3.5 mEq/L (3.5-5.1)
[2020-01-12] MEDS: Ampicillin 1,000 MG in 0.9 % Sodium Chloride Mini Bag 100 ML IVPB SCH (05:48)
[2020-01-12] MEDS: DilTIAZem CD (24hr) 120 MG CAP.ER.24H PO SCH (08:59)
[2020-01-12] MEDS: allopurinoL 100 MG TABLET PO SCH ×2 (08:59→20:58)
[2020-01-12] MEDS: Benzonatate 100 MG CAPSULE PO SCH ×4 (08:59→20:55)
[2020-01-12] MEDS: Bumetanide 1 MG TABLET PO SCH (08:59)
[2020-01-12] MEDS: Insulin LISPRO 300 UNITS/3 ML VIAL SQ SCH ×3 (09:00→16:28)
[2020-01-12] MEDS: Metoprolol 100 MG TABLET PO SCH ×2 (09:00→20:55)
[2020-01-12] MEDS ORDERED: Ampicillin/Sulbactam 1,500 MG in 0.9 % Sodium Chloride Mini Bag 100 ML IVPB SCH (12:00)
[2020-01-12] MEDS: Ampicillin 2 GM in 0.9 % Sodium Chloride Mini Bag 100 ML IVPB SCH (23:50)
[2020-01-13 04:32] LABS: Hematocrit 27.9 % (35.3-44.9); Hemoglobin 8.7 g/dL (11.5-15.4); Mean Corpuscular HGB Conc 31.2 g/dL (31.6-35.5); Mean Corpuscular Hemoglobin 29.8 pg (28.0-33.3); Mean Corpuscular Volume 95.5 fL (83.0-100.0); Mean Platelet Volume 8.9 fL (9.4-12.4); Platelet Count 340 K/mcL (140-400); Red Blood Count 2.92 M/mcL (3.82-4.97); Red Cell Distribution Width 14.9 % (11.5-14.5); White Blood Count 10.8 K/mcL (4.3-11.1)
[2020-01-13 04:49] LABS: Calcium 8.7 mg/dL (8.6-10.3); Potassium 3.5 mEq/L (3.5-5.1)
[2020-01-13] MEDS: Insulin LISPRO 300 UNITS/3 ML VIAL SQ SCH ×3 (07:37→16:54)
[2020-01-13] MEDS: Metoprolol 100 MG TABLET PO SCH (07:42)
[2020-01-13] MEDS: Bumetanide 1 MG TABLET PO SCH (07:42)
[2020-01-13] MEDS: DilTIAZem CD (24hr) 120 MG CAP.ER.24H PO SCH (07:42)
[2020-01-13] MEDS: allopurinoL 100 MG TABLET PO SCH (07:42)
[2020-01-13] MEDS: Benzonatate 100 MG CAPSULE PO SCH ×3 (07:42→16:54)
[2020-01-13] MEDS: Ampicillin 2 GM in 0.9 % Sodium Chloride Mini Bag 100 ML IVPB SCH (10:30)
[2020-01-13 16:00] VITALS: BP 150/68
== END 2020-01-13 19:00 | disposition other institution (70) | DRG 571 ==
LOC: 3ANU → SUATTDRO 13:43
PROVIDERS: ADMIT Internal Medicine; ATTEND Internal Medicine

== ENCOUNTER 2020-03-04 15:29 | Inpatient (IN) ==
[2020-03-04] MEDS ORDERED: *HR* FentaNYL (PF) 100 MCG/2 ML VIAL IVP ONE (17:00)
[2020-03-04 17:01] LABS: Basophils # 0.1 K/mcL (0.0-0.2); Basophils % 0.5 %; Eosinophils # 0.3 K/mcL (0.0-0.6); Eosinophils % 3.1 %; Hematocrit 30.7 % (35.3-44.9); Hemoglobin 9.8 g/dL (11.5-15.4); Immature Granulocytes % 0.2 % (0-4); Lymphocytes # 2.8 K/mcL (0.6-4.6); Lymphocytes % 29.7 %; Mean Corpuscular HGB Conc 31.9 g/dL (31.6-35.5); Mean Corpuscular Hemoglobin 29.3 pg (28.0-33.3); Monocytes # 1.1 K/mcL (0.0-1.3); Monocytes % 11.8 %; Neutrophils # 5.2 K/mcL (1.6-8.9); Platelet Count 256 K/mcL (140-400); Red Blood Count 3.35 M/mcL (3.82-4.97); Red Cell Distribution Width 15.7 % (11.5-14.5); Segmented Neutrophils % 54.7 %; White Blood Count 9.6 K/mcL (4.3-11.1)
[2020-03-04 17:11] LABS: INR 2.4; Prothrombin Time 27.6 Seconds (9.4-12.1)
[2020-03-04 17:22] LABS: Mean Corpuscular Volume 91.6 fL (83.0-100.0)
[2020-03-04 17:24] LABS: Alanine Aminotransferase 10 Units/L (7-52); Albumin 3.8 g/dL (3.5-5.7); Albumin/Globulin Ratio 1.3 (1.1-2.2); Alkaline Phosphatase 97 Units/L (34-104); Aspartate Amino Transferase 18 Units/L (13-39); BUN/Creatinine Ratio 22 (6-26); Bilirubin,Direct 0.1 mg/dL (0.0-0.2); Bilirubin,Indirect 0.5 mg/dL (0.0-1.0); Bilirubin,Total 0.6 mg/dL (0.3-1.0); Blood Urea Nitrogen 47 mg/dL (8-23); Calcium 9.2 mg/dL (8.6-10.3); Carbon Dioxide 26 mEq/L (23-29); Chloride 100 mEq/L (98-107); Glucose 102 mg/dL (70-105); Osmolality,Calculated 292 (280-300); Potassium 3.7 mEq/L (3.5-5.1); Sodium 135 mEq/L (136-145); Total Protein 6.8 g/dL (6.4-8.9); Troponin I < 0.03 ng/mL (< 0.04); eGFR For African Americans 26 (> 60); eGFR For Non-African Americans 21 (> 60)
[2020-03-04] MEDS ORDERED: Naloxone 0.4 MG/ML INJ IVP PRN (18:52)
[2020-03-04] MEDS ORDERED: Ondansetron 4 MG/2 ML VIAL IVP PRN (18:52)
[2020-03-04] MEDS ORDERED: Dextrose Gel 15 GM/37.5 ML TUBE PO PRN ×2 (18:54)
[2020-03-04] MEDS ORDERED: *HR* Dextrose 50 % in Water (Syg) 50 ML SYRINGE IVP PRN (18:54)
[2020-03-04] MEDS ORDERED: D5% in Water 1,000 ML IVC PRN (18:54)
[2020-03-04] MEDS ORDERED: Warfarin perPT PO PRN (18:56)
[2020-03-04] MEDS: Insulin LISPRO 300 UNITS/3 ML VIAL SQ SCH (21:45)
[2020-03-04] MEDS: Metoprolol 100 MG TABLET PO SCH (21:46)
[2020-03-04] MEDS: Bumetanide 1 MG/4 ML VIAL IVP SCH (21:46)
[2020-03-04] MEDS: Albumin 25% 25gram/100mL 25 GM/100 ML IV.SOLN IVPB SCH (21:47)
[2020-03-05 06:39] LABS: Basophils # 0.1 K/mcL (0.0-0.2); Basophils % 0.7 %; Eosinophils # 0.3 K/mcL (0.0-0.6); Eosinophils % 4.5 %; Hematocrit 26.9 % (35.3-44.9); Hemoglobin 8.9 g/dL (11.5-15.4); Immature Granulocytes % 0.3 % (0-4); Lymphocytes % 29.6 %; Mean Corpuscular HGB Conc 33.1 g/dL (31.6-35.5); Mean Corpuscular Hemoglobin 30.9 pg (28.0-33.3); Mean Corpuscular Volume 93.4 fL (83.0-100.0); Mean Platelet Volume 9.7 fL (9.4-12.4); Monocytes # 0.9 K/mcL (0.0-1.3); Neutrophils # 3.6 K/mcL (1.6-8.9); Platelet Count 226 K/mcL (140-400); Red Blood Count 2.88 M/mcL (3.82-4.97); Red Cell Distribution Width 15.8 % (11.5-14.5); Segmented Neutrophils % 51.9 %; White Blood Count 6.9 K/mcL (4.3-11.1)
[2020-03-05 06:40] LABS: INR 2.6; Prothrombin Time 29.8 Seconds (9.4-12.1)
[2020-03-05 06:58] LABS: Calcium 9.5 mg/dL (8.6-10.3); Potassium 3.6 mEq/L (3.5-5.1)
[2020-03-05] MEDS: Insulin LISPRO 300 UNITS/3 ML VIAL SQ SCH ×4 (09:00→21:58)
[2020-03-05] MEDS: Bumetanide 1 MG/4 ML VIAL IVP SCH ×2 (09:12→16:05)
[2020-03-05] MEDS: Metoprolol 100 MG TABLET PO SCH ×2 (09:14→21:57)
[2020-03-05] MEDS: DilTIAZem CD (24hr) 120 MG CAP.ER.24H PO SCH (09:14)
[2020-03-05] MEDS: Albumin 25% 25gram/100mL 25 GM/100 ML IV.SOLN IVPB SCH (09:18)
[2020-03-05] MEDS: Sennosides/Docusate Sodium TABLET PO SCH (13:21)
[2020-03-05] MEDS ORDERED: *HR* Warfarin 3 MG TABLET PO ONE (18:00)
[2020-03-05 22:59] LABS: Bilirubin,Urine Negative (Negative); Blood,Urine Negative (Negative); Clarity,Urine Clear (Clear); Color,Urine Yellow (Yellow); Glucose,Urine (UA) Normal (Normal); Ketones,Urine Negative (Negative); Leukocyte Esterase,Urine Negative (Negative); Nitrite,Urine Negative (Negative); PH,Urine 6.5 pH Units (5.0-8.0); Protein,Urine Negative (Neg-Trace); Specific Gravity,Urine 1.012 (1.010-1.025); Urobilinogen,Urine Normal (Normal)
[2020-03-06 06:58] LABS: Hematocrit 27.3 % (35.3-44.9); Hemoglobin 8.5 g/dL (11.5-15.4); Mean Corpuscular HGB Conc 31.1 g/dL (31.6-35.5); Mean Corpuscular Hemoglobin 28.5 pg (28.0-33.3); Mean Corpuscular Volume 91.6 fL (83.0-100.0); Mean Platelet Volume 9.4 fL (9.4-12.4); Platelet Count 208 K/mcL (140-400); Red Blood Count 2.98 M/mcL (3.82-4.97); Red Cell Distribution Width 15.7 % (11.5-14.5); White Blood Count 6.6 K/mcL (4.3-11.1)
[2020-03-06 07:13] LABS: INR 2.2; Prothrombin Time 24.5 Seconds (9.4-12.1)
[2020-03-06 07:17] LABS: Calcium 9.1 mg/dL (8.6-10.3); Potassium 3.5 mEq/L (3.5-5.1)
[2020-03-06] MEDS: Insulin LISPRO 300 UNITS/3 ML VIAL SQ SCH ×4 (08:40→20:26)
[2020-03-06] MEDS: Sennosides/Docusate Sodium TABLET PO SCH (08:47)
[2020-03-06] MEDS: Metoprolol 100 MG TABLET PO SCH ×2 (08:47→20:25)
[2020-03-06] MEDS: DilTIAZem CD (24hr) 120 MG CAP.ER.24H PO SCH (08:47)
[2020-03-06] MEDS ORDERED: Albumin 25% 25gram/100mL 25 GM/100 ML IV.SOLN IVPB ONE (09:07)
[2020-03-06] MEDS ORDERED: Lidocaine 1% 20 ML MDV INFILT ONE (12:59)
[2020-03-06] MEDS: Bumetanide 1 MG/4 ML VIAL IVP SCH ×2 (13:56→14:42)
[2020-03-06 14:58] LABS: Uric Acid 5.7 mg/dL (2.3-7.6)
[2020-03-06] MEDS ORDERED: *HR* Warfarin 3 MG TABLET PO ONE (18:00)
[2020-03-07 07:49] LABS: INR 1.9; Prothrombin Time 21.9 Seconds (9.4-12.1)
[2020-03-07] MEDS: Insulin LISPRO 300 UNITS/3 ML VIAL SQ SCH ×4 (07:52→19:58)
[2020-03-07 08:02] LABS: Calcium 9.3 mg/dL (8.6-10.3); Potassium 3.6 mEq/L (3.5-5.1)
[2020-03-07] MEDS ORDERED: Albumin 25% 25gram/100mL 25 GM/100 ML IV.SOLN IVPB ONE (08:15)
[2020-03-07 09:35] LABS: Sodium, Urine 92.5 mEq/L
[2020-03-07] MEDS: DilTIAZem CD (24hr) 120 MG CAP.ER.24H PO SCH (09:35)
[2020-03-07] MEDS: Sennosides/Docusate Sodium TABLET PO SCH (09:35)
[2020-03-07] MEDS: Metoprolol 100 MG TABLET PO SCH ×2 (09:35→19:58)
[2020-03-07] MEDS: Bumetanide 1 MG/4 ML VIAL IVP SCH (13:05)
[2020-03-07] MEDS ORDERED: *HR* Warfarin 4 MG TABLET PO ONE (18:00)
[2020-03-08 04:08] LABS: INR 2.1
[2020-03-08 06:34] VITALS: BP 134/61
[2020-03-08] MEDS: Insulin LISPRO 300 UNITS/3 ML VIAL SQ SCH ×2 (07:35→14:22)
[2020-03-08] MEDS: Sennosides/Docusate Sodium TABLET PO SCH (08:04)
[2020-03-08] MEDS: Bumetanide 1 MG/4 ML VIAL IVP SCH (08:04)
[2020-03-08] MEDS: DilTIAZem CD (24hr) 120 MG CAP.ER.24H PO SCH (08:04)
[2020-03-08] MEDS: Metoprolol 100 MG TABLET PO SCH (08:04)
[2020-03-08] MEDS ORDERED: *HR* Warfarin 3 MG TABLET PO ONE (18:00)
== END 2020-03-08 14:34 | disposition home health service (06) | DRG 291 ==
LOC: 3BNU 15:29 → EMEROOARM 15:29 → 3BNU 19:54
PROVIDERS: ADMIT Family Medicine; ATTEND Student in an Organized Health Care Education/Training Program

== ENCOUNTER 2021-02-26 20:13 | Observation (INO) ==
[2021-02-26 21:07] LABS: Basophils # 0.1 K/mcL (0.0-0.2); Basophils % 0.8 %; Eosinophils # 0.2 K/mcL (0.0-0.6); Hematocrit 33.5 % (35.3-44.9); Hemoglobin 10.8 g/dL (11.5-15.4); Immature Granulocytes % 0.4 % (0-4); Lymphocytes # 1.8 K/mcL (0.6-4.6); Mean Corpuscular HGB Conc 32.2 g/dL (31.6-35.5); Mean Corpuscular Hemoglobin 30.9 pg (28.0-33.3); Mean Platelet Volume 9.5 fL (9.4-12.4); Monocytes # 0.7 K/mcL (0.0-1.3); Monocytes % 8.7 %; Neutrophils # 5.1 K/mcL (1.6-8.9); Platelet Count 222 K/mcL (140-400); Red Blood Count 3.49 M/mcL (3.82-4.97); Red Cell Distribution Width 13.6 % (11.5-14.5); Segmented Neutrophils % 65.1 %; White Blood Count 7.8 K/mcL (4.3-11.1)
[2021-02-26 21:15] LABS: INR 2.2; Prothrombin Time 24.4 Seconds (9.4-12.1)
[2021-02-26 21:27] LABS: BUN/Creatinine Ratio 21 (6-26); Blood Urea Nitrogen 49 mg/dL (8-23); Calcium 9.1 mg/dL (8.6-10.3); Carbon Dioxide 27 mEq/L (23-29); Chloride 102 mEq/L (98-107); Glucose 103 mg/dL (70-105); Osmolality,Calculated 301 (280-300); Potassium 3.8 mEq/L (3.5-5.1); Sodium 139 mEq/L (136-145); Troponin I < 0.03 ng/mL (< 0.04); eGFR For African Americans 24 (> 60); eGFR For Non-African Americans 20 (> 60)
[2021-02-26] MEDS ORDERED: D5% in Water 1,000 ML IVC PRN (23:21)
[2021-02-26] MEDS ORDERED: *HR* Dextrose 50 % in Water (Vial) 50 ML VIAL IVP PRN (23:21)
[2021-02-26] MEDS ORDERED: Dextrose Gel 15 GM/37.5 ML TUBE PO PRN ×2 (23:21)
[2021-02-26] MEDS ORDERED: Acetaminophen 325 MG TABLET PO PRN (23:22)
[2021-02-26] MEDS ORDERED: Naloxone 0.4 MG/ML INJ IVP PRN (23:22)
[2021-02-26] MEDS ORDERED: Melatonin 3 MG TABLET PO PRN (23:22)
[2021-02-26] MEDS ORDERED: Ondansetron 4 MG/2 ML VIAL IVP PRN (23:22)
[2021-02-26] MEDS ORDERED: *HR* Warfarin 3 MG TABLET PO ONE (23:45)
[2021-02-27] MEDS: predniSONE 20 MG TABLET PO SCH ×2 (00:54→08:39)
[2021-02-27 03:37] LABS: Basophils # 0.1 K/mcL (0.0-0.2); Basophils % 0.6 %; Eosinophils # 0.1 K/mcL (0.0-0.6); Eosinophils % 1.2 %; Hematocrit 31.9 % (35.3-44.9); Hemoglobin 10.5 g/dL (11.5-15.4); Immature Granulocytes % 0.5 % (0-4); Lymphocytes # 2.1 K/mcL (0.6-4.6); Mean Corpuscular HGB Conc 32.9 g/dL (31.6-35.5); Mean Corpuscular Hemoglobin 31.8 pg (28.0-33.3); Mean Corpuscular Volume 96.7 fL (83.0-100.0); Mean Platelet Volume 9.8 fL (9.4-12.4); Monocytes # 0.6 K/mcL (0.0-1.3); Neutrophils # 5.6 K/mcL (1.6-8.9); Platelet Count 218 K/mcL (140-400); Red Cell Distribution Width 13.5 % (11.5-14.5); Segmented Neutrophils % 65.7 %; White Blood Count 8.5 K/mcL (4.3-11.1)
[2021-02-27 03:43] LABS: INR 2.2; Prothrombin Time 25.2 Seconds (9.4-12.1)
[2021-02-27 03:53] LABS: Calcium 8.9 mg/dL (8.6-10.3); Potassium 3.8 mEq/L (3.5-5.1)
[2021-02-27] MEDS: allopurinoL 100 MG TABLET PO SCH ×2 (08:39→20:20)
[2021-02-27] MEDS: Metoprolol 100 MG TABLET PO SCH ×2 (08:39→20:20)
[2021-02-27] MEDS: DilTIAZem CD (24hr) 120 MG CAP.ER.24H PO SCH (08:39)
[2021-02-27] MEDS: Insulin LISPRO 300 UNITS/3 ML VIAL SUBQ SCH ×4 (08:39→21:10)
[2021-02-27] MEDS: Bumetanide 1 MG TABLET PO SCH (08:39)
[2021-02-27] MEDS: cloNIDine HCL 0.1 MG TABLET PO SCH (09:34)
[2021-02-27] MEDS ORDERED: Fluticasone Propionate Nasal 50 MCG/SPRAY BOTTLE NS PRN (10:55)
[2021-02-27] MEDS ORDERED: *HR* Warfarin 3 MG TABLET PO ONE (18:00)
[2021-02-27] MEDS ORDERED: Warfarin perPT PO PRN (18:00)
[2021-02-28 06:32] LABS: INR 2.9; Prothrombin Time 32.6 Seconds (9.4-12.1)
[2021-02-28] MEDS: Insulin LISPRO 300 UNITS/3 ML VIAL SUBQ SCH ×4 (08:17→19:39)
[2021-02-28] MEDS: predniSONE 20 MG TABLET PO SCH (08:21)
[2021-02-28] MEDS: allopurinoL 100 MG TABLET PO SCH ×2 (08:21→19:38)
[2021-02-28] MEDS: cloNIDine HCL 0.1 MG TABLET PO SCH (08:21)
[2021-02-28] MEDS: DilTIAZem CD (24hr) 120 MG CAP.ER.24H PO SCH (08:21)
[2021-02-28] MEDS: Metoprolol 100 MG TABLET PO SCH ×2 (08:21→19:38)
[2021-02-28] MEDS: Bumetanide 1 MG TABLET PO SCH (08:22)
[2021-02-28] MEDS: Warfarin 1 MG, Warfarin 0.5 MG PO ONE (19:38)
[2021-03-01 05:07] LABS: INR 3.1; Prothrombin Time 34.4 Seconds (9.4-12.1)
[2021-03-01] MEDS: Insulin LISPRO 300 UNITS/3 ML VIAL SUBQ SCH ×4 (07:17→20:37)
[2021-03-01] MEDS: allopurinoL 100 MG TABLET PO SCH ×2 (08:20→20:21)
[2021-03-01] MEDS: Bumetanide 1 MG TABLET PO SCH (08:20)
[2021-03-01] MEDS: DilTIAZem CD (24hr) 120 MG CAP.ER.24H PO SCH (08:20)
[2021-03-01] MEDS: Metoprolol 100 MG TABLET PO SCH ×2 (08:20→20:21)
[2021-03-01] MEDS: cloNIDine HCL 0.1 MG TABLET PO SCH (08:20)
[2021-03-01] MEDS ORDERED: diazePAM 2 MG TABLET PO PRN (14:18)
[2021-03-01] MEDS: polyethylene glycoL 3350 17 GM POWD.PACK PO SCH (14:50)
[2021-03-01] MEDS ORDERED: Warfarin 1 MG, Warfarin 0.5 MG PO ONE (18:00)
[2021-03-01] MEDS: Sennosides/Docusate Sodium TABLET PO SCH (20:21)
[2021-03-01] MEDS: Warfarin 1 MG, Warfarin 0.5 MG PO ONE (20:23)
[2021-03-02 06:34] LABS: INR 3.2; Prothrombin Time 35.8 Seconds (9.4-12.1)
[2021-03-02] MEDS: Insulin LISPRO 300 UNITS/3 ML VIAL SUBQ SCH ×4 (07:27→20:24)
[2021-03-02] MEDS: cloNIDine HCL 0.1 MG TABLET PO SCH (08:30)
[2021-03-02] MEDS: Metoprolol 100 MG TABLET PO SCH ×2 (08:30→20:23)
[2021-03-02] MEDS: Bumetanide 1 MG TABLET PO SCH (08:30)
[2021-03-02] MEDS: allopurinoL 100 MG TABLET PO SCH ×2 (08:30→20:23)
[2021-03-02] MEDS: polyethylene glycoL 3350 17 GM POWD.PACK PO SCH (08:31)
[2021-03-02] MEDS: Sennosides/Docusate Sodium TABLET PO SCH ×2 (08:31→20:22)
[2021-03-02] MEDS: DilTIAZem CD (24hr) 120 MG CAP.ER.24H PO SCH (08:31)
[2021-03-02] MEDS ORDERED: Warfarin 1 MG, Warfarin 0.5 MG PO ONE (18:00)
[2021-03-03 04:19] LABS: INR 3.8; Prothrombin Time 42.5 Seconds (9.4-12.1)
[2021-03-03] MEDS: Insulin LISPRO 300 UNITS/3 ML VIAL SUBQ SCH (07:32)
[2021-03-03] MEDS: Metoprolol 100 MG TABLET PO SCH (08:09)
[2021-03-03] MEDS: Bumetanide 1 MG TABLET PO SCH (08:10)
[2021-03-03] MEDS: Sennosides/Docusate Sodium TABLET PO SCH (08:10)
[2021-03-03] MEDS: polyethylene glycoL 3350 17 GM POWD.PACK PO SCH ×2 (08:10→08:19)
[2021-03-03] MEDS: DilTIAZem CD (24hr) 120 MG CAP.ER.24H PO SCH (08:10)
[2021-03-03] MEDS: allopurinoL 100 MG TABLET PO SCH (08:10)
[2021-03-03] MEDS: cloNIDine HCL 0.1 MG TABLET PO SCH (08:10)
[2021-03-03 10:54] VITALS: BP 112/53
== END 2021-03-03 14:56 | disposition home health service (06) ==
LOC: EMEROOARM 20:13 → 3BNU 20:13 → SUATTDRO 22:36 → 3BNU 23:04
PROVIDERS: ADMIT Internal Medicine; ATTEND Internal Medicine

== ENCOUNTER 2021-03-06 10:20 | Observation (INO) ==
[2021-03-06 11:06] LABS: Basophils % 0.4 %; Eosinophils # 0.3 K/mcL (0.0-0.6); Eosinophils % 2.5 %; Hematocrit 33.2 % (35.3-44.9); Immature Granulocytes % 1.2 % (0-4); Lymphocytes # 2.4 K/mcL (0.6-4.6); Lymphocytes % 21.5 %; Mean Corpuscular HGB Conc 33.1 g/dL (31.6-35.5); Mean Corpuscular Hemoglobin 31.2 pg (28.0-33.3); Mean Corpuscular Volume 94.1 fL (83.0-100.0); Monocytes # 1.4 K/mcL (0.0-1.3); Monocytes % 12.5 %; Neutrophils # 6.8 K/mcL (1.6-8.9); Platelet Count 240 K/mcL (140-400); Red Blood Count 3.53 M/mcL (3.82-4.97); Red Cell Distribution Width 13.5 % (11.5-14.5); Segmented Neutrophils % 61.9 %
[2021-03-06 11:08] LABS: Bilirubin,Urine Negative (Negative); Blood,Urine Negative (Negative); Clarity,Urine Clear (Clear); Color,Urine Light-Yellow (Yellow); Glucose,Urine (UA) Normal (Normal); Ketones,Urine Negative (Negative); Leukocyte Esterase,Urine Negative (Negative); Nitrite,Urine Negative (Negative); Protein,Urine Negative (Neg-Trace); Specific Gravity,Urine 1.015 (1.010-1.025); Urobilinogen,Urine Normal (Normal)
[2021-03-06 11:31] LABS: INR 2.6; Prothrombin Time 28.8 Seconds (9.4-12.1)
[2021-03-06 11:43] LABS: Alanine Aminotransferase 9 Units/L (7-52); Albumin 3.8 g/dL (3.5-5.7); Albumin/Globulin Ratio 1.5 (1.1-2.2); Alkaline Phosphatase 69 Units/L (34-104); Aspartate Amino Transferase 11 Units/L (13-39); BUN/Creatinine Ratio 19 (6-26); Bilirubin,Total 0.4 mg/dL (0.3-1.0); Blood Urea Nitrogen 68 mg/dL (8-23); Calcium 8.7 mg/dL (8.6-10.3); Carbon Dioxide 22 mEq/L (23-29); Chloride 100 mEq/L (98-107); Globulin 2.5 g/dL (2.4-3.5); Glucose 149 mg/dL (70-105); Osmolality,Calculated 307 (280-300); Potassium 3.5 mEq/L (3.5-5.1); Sodium 137 mEq/L (136-145); Total Protein 6.3 g/dL (6.4-8.9); Troponin I < 0.03 ng/mL (< 0.04); eGFR For African Americans 15 (> 60); eGFR For Non-African Americans 12 (> 60)
[2021-03-06] MEDS ORDERED: 0.9 % Sodium Chloride 500 ML IVC ONE (11:46)
[2021-03-06] MEDS ORDERED: Naloxone 0.4 MG/ML INJ IVP PRN (12:25)
[2021-03-06] MEDS: 0.9 % Sodium Chloride 1,000 ML IVC SCH (13:54)
[2021-03-06] MEDS ORDERED: diazePAM 2 MG TABLET PO PRN (14:13)
[2021-03-06] MEDS ORDERED: *HR* Warfarin 3 MG TABLET PO ONE (18:00)
[2021-03-06] MEDS ORDERED: *HR* Heparin 5,000 UNIT/ML VIAL SQ SCH (18:00)
[2021-03-06] MEDS ORDERED: Warfarin perPT PO PRN (18:00)
[2021-03-06] MEDS: Sennosides/Docusate Sodium TABLET PO SCH (19:23)
[2021-03-06] MEDS ORDERED: metOLazone 2.5 MG TABLET PO PRN (20:07)
[2021-03-06] MEDS ORDERED: Fluticasone Propionate Nasal 50 MCG/SPRAY BOTTLE NS PRN (20:07)
[2021-03-06] MEDS: Metoprolol 100 MG TABLET PO SCH (21:21)
[2021-03-07] MEDS: 0.9 % Sodium Chloride 1,000 ML IVC SCH (02:54)
[2021-03-07 05:29] LABS: Prothrombin Time 33.4 Seconds (9.4-12.1)
[2021-03-07 05:31] LABS: Calcium 7.8 mg/dL (8.6-10.3); Magnesium 1.8 mg/dL (1.6-2.6); Phosphorous 3.5 mg/dL (2.7-4.5); Potassium 3.4 mEq/L (3.5-5.1)
[2021-03-07] MEDS: Sennosides/Docusate Sodium TABLET PO SCH ×2 (07:39→21:59)
[2021-03-07] MEDS: Metoprolol 100 MG TABLET PO SCH ×2 (07:40→21:59)
[2021-03-07] MEDS: polyethylene glycoL 3350 17 GM POWD.PACK PO SCH (07:43)
[2021-03-07] MEDS ORDERED: cloNIDine HCL 0.1 MG TABLET PO SCH (09:00)
[2021-03-07] MEDS ORDERED: Bumetanide 1 MG TABLET PO SCH (09:00)
[2021-03-07] MEDS: DilTIAZem CD (24hr) 120 MG CAP.ER.24H PO SCH (10:30)
[2021-03-07] MEDS ORDERED: *HR* Warfarin 1 MG TABLET PO ONE (18:00)
[2021-03-08 02:15] LABS: INR 2.7; Prothrombin Time 30.2 Seconds (9.4-12.1)
[2021-03-08 02:23] LABS: Calcium 8.1 mg/dL (8.6-10.3)
[2021-03-08 07:49] VITALS: BP 150/86
[2021-03-08] MEDS: Metoprolol 100 MG TABLET PO SCH (09:19)
[2021-03-08] MEDS: Sennosides/Docusate Sodium TABLET PO SCH (09:19)
[2021-03-08] MEDS: DilTIAZem CD (24hr) 120 MG CAP.ER.24H PO SCH (09:19)
[2021-03-08] MEDS: polyethylene glycoL 3350 17 GM POWD.PACK PO SCH (09:20)
[2021-03-08] MEDS ORDERED: *HR* Warfarin 3 MG TABLET PO ONE (18:00)
== END 2021-03-08 13:33 | disposition home health service (06) ==
LOC: 3BNU 10:20 → EMEROOARM 10:20 → SUATTDRO 12:14 → 3BNU 13:11
PROVIDERS: ADMIT Internal Medicine; ATTEND Internal Medicine

== ENCOUNTER 2021-09-06 13:26 | Observation (INO) ==
[2021-09-06 15:46] LABS: Basophils % 0.2 %; Eosinophils % 0.3 %; Hematocrit 32.5 % (35.3-44.9); Immature Granulocytes % 0.5 % (0-4); Lymphocytes # 1.5 K/mcL (0.6-4.6); Lymphocytes % 10.2 %; Mean Corpuscular HGB Conc 36.9 g/dL (31.6-35.5); Mean Corpuscular Hemoglobin 36.7 pg (28.0-33.3); Mean Corpuscular Volume 99.4 fL (83.0-100.0); Monocytes # 1.6 K/mcL (0.0-1.3); Monocytes % 10.8 %; Neutrophils # 11.6 K/mcL (1.6-8.9); Platelet Count 278 K/mcL (140-400); Red Blood Count 3.27 M/mcL (3.82-4.97); Red Cell Distribution Width 16.3 % (11.5-14.5); White Blood Count 14.9 K/mcL (4.3-11.1)
[2021-09-06 16:09] LABS: Albumin 3.5 g/dL (3.5-5.7); Albumin/Globulin Ratio 1.3 (1.1-2.2); Bilirubin,Total 0.9 mg/dL (0.3-1.0); Calcium 9.4 mg/dL (8.6-10.3); Globulin 2.8 g/dL (2.4-3.5); Potassium 3.4 mEq/L (3.5-5.1); Total Protein 6.3 g/dL (6.4-8.9); Troponin I 0.15 ng/mL (< 0.04)
[2021-09-06] MEDS ORDERED: 0.9 % Sodium Chloride 1,000 ML IVC ONE ×2 (16:21→17:41)
[2021-09-06 16:24] LABS: Thyroid Stimulating Hormone 2.501 mcIU/mL (0.340-5.600)
[2021-09-06 17:25] LABS: Adenovirus Not Detected (Not Detect); Bordetella Pertussis Not Detected (Not Detect); Chlamydophila pneumoniae Not Detected (Not Detect); Coronavirus 229E Not Detected (Not Detect); Coronavirus HKU1 Not Detected (Not Detect); Coronavirus NL63 Not Detected (Not Detect); Coronavirus OC43 Not Detected (Not Detect); Human Metapneumovirus Not Detected (Not Detect); Human Rhinovirus/Enterovirus Not Detected (Not Detect); Influenza A Subtype 2009 H1 Not Detected (Not Detect); Influenza B Not Detected (Not Detect); Mycoplasma pneumoniae Not Detected (Not Detect); Parainfluenza Virus 1 Not Detected (Not Detect); Parainfluenza Virus 2 Not Detected (Not Detect); Parainfluenza Virus 3 Not Detected (Not Detect); Parainfluenza Virus 4 Not Detected (Not Detect); Respiratory Syncytial Virus Not Detected (Not Detect); SARS-CoV-2 Not Detected (Not Detect)
[2021-09-06] MEDS ORDERED: Aspirin 325 MG TABLET PO ONE (18:33)
[2021-09-06 19:10] LABS: Bilirubin,Urine Negative (Negative); Blood,Urine Moderate (Negative); Clarity,Urine Clear (Clear); Color,Urine Light-Yellow (Yellow); Glucose,Urine (UA) Normal (Normal); Hyaline Casts,Urine Few per lpf (None Seen); Ketones,Urine 20 mg/dL (Negative); Leukocyte Esterase,Urine Moderate (Negative); Mucus,Urine Few per lpf (None-Few); Nitrite,Urine Negative (Negative); Protein,Urine 200 mg/dL (Neg-Trace); Squamous Epithelial Cell,Urine Few per hpf (None-Few); Urobilinogen,Urine Normal (Normal)
[2021-09-06] MEDS ORDERED: *HR* Metoprolol 5 MG/5 ML VIAL IVP ONE (20:32)
[2021-09-06] MEDS ORDERED: Naloxone 0.4 MG/ML INJ IVP PRN (21:27)
[2021-09-06] MEDS ORDERED: Ondansetron ODT 4 MG TAB.RAPDIS SL PRN (21:27)
[2021-09-06] MEDS ORDERED: Melatonin 3 MG TABLET PO PRN (21:27)
[2021-09-06] MEDS ORDERED: D5% in Water 1,000 ML IVC PRN (21:36)
[2021-09-06] MEDS ORDERED: Dextrose Gel 15 GM/37.5 ML TUBE PO PRN ×2 (21:36)
[2021-09-06] MEDS ORDERED: *HR* Dextrose 50 % in Water (Syg) 50 ML SYRINGE IVP PRN (21:36)
[2021-09-06 22:27] LABS: INR 2.1; Prothrombin Time 23.3 Seconds (9.4-12.1)
[2021-09-06] MEDS: 0.9 % Sodium Chloride 1,000 ML IVC SCH (22:48)
[2021-09-06 22:55] LABS: Troponin I 0.14 ng/mL (< 0.04)
[2021-09-07 05:11] LABS: Basophils % 0.3 %; Eosinophils # 0.2 K/mcL (0.0-0.6); Eosinophils % 1.7 %; Hematocrit 30.1 % (35.3-44.9); Immature Granulocytes % 0.5 % (0-4); Lymphocytes % 9.3 %; Mean Corpuscular HGB Conc 32.2 g/dL (31.6-35.5); Mean Corpuscular Hemoglobin 30.6 pg (28.0-33.3); Mean Platelet Volume 9.8 fL (9.4-12.4); Monocytes # 1.4 K/mcL (0.0-1.3); Monocytes % 13.8 %; Neutrophils # 7.7 K/mcL (1.6-8.9); Platelet Count 228 K/mcL (140-400); Red Blood Count 3.17 M/mcL (3.82-4.97); Red Cell Distribution Width 14.9 % (11.5-14.5); Segmented Neutrophils % 74.4 %; White Blood Count 10.3 K/mcL (4.3-11.1)
[2021-09-07 05:18] LABS: Hemoglobin 9.7 g/dL (11.5-15.4)
[2021-09-07 05:44] LABS: Calcium 8.1 mg/dL (8.6-10.3); Magnesium 1.8 mg/dL (1.6-2.6); Phosphorous 2.3 mg/dL (2.7-4.5); Troponin I 0.16 ng/mL (< 0.04)
[2021-09-07] MEDS ORDERED: *HR* Metoprolol 5 MG/5 ML VIAL IVP ONE (06:39)
[2021-09-07] MEDS: Insulin LISPRO 300 UNITS/3 ML VIAL SUBQ SCH ×3 (07:41→17:35)
[2021-09-07] MEDS: DilTIAZem CD (24hr) 120 MG CAP.ER.24H PO SCH (07:49)
[2021-09-07] MEDS: 0.9 % Sodium Chloride 1,000 ML IVC SCH ×2 (07:50→18:40)
[2021-09-07] MEDS ORDERED: Perflutren Lipid Microsphere 1.3 ML in 0.9 % Sodium Chloride 8.7 ML IVP PRN (08:42)
[2021-09-07] MEDS ORDERED: Potassium Chloride Elixir 20 MEQ/15 ML UDC PO ONE (08:46)
[2021-09-07 15:53] LABS: Hematocrit 29.4 % (35.3-44.9); Hemoglobin 9.5 g/dL (11.5-15.4)
[2021-09-07 16:02] LABS: Prothrombin Time 22.6 Seconds (9.4-12.1)
[2021-09-07] MEDS ORDERED: *HR* Warfarin 3 MG TABLET PO ONE (18:00)
[2021-09-07] MEDS ORDERED: *HR* Warfarin 0.5 MG TABLET PO ONE (18:00)
[2021-09-07] MEDS ORDERED: *HR* Warfarin 4 MG TABLET PO ONE (18:00)
[2021-09-07] MEDS ORDERED: Warfarin perPT PO PRN (18:00)
[2021-09-08 05:31] LABS: Basophils % 0.3 %; Eosinophils # 0.1 K/mcL (0.0-0.6); Eosinophils % 1.3 %; Hematocrit 29.7 % (35.3-44.9); Hemoglobin 9.2 g/dL (11.5-15.4); Immature Granulocytes % 0.4 % (0-4); Lymphocytes # 1.9 K/mcL (0.6-4.6); Lymphocytes % 19.2 %; Mean Corpuscular Hemoglobin 29.7 pg (28.0-33.3); Mean Corpuscular Volume 95.8 fL (83.0-100.0); Mean Platelet Volume 10.1 fL (9.4-12.4); Monocytes # 1.7 K/mcL (0.0-1.3); Monocytes % 17.2 %; Neutrophils # 6.2 K/mcL (1.6-8.9); Platelet Count 218 K/mcL (140-400); Red Cell Distribution Width 15.1 % (11.5-14.5); Segmented Neutrophils % 61.6 %
[2021-09-08 05:38] LABS: INR 1.7; Prothrombin Time 18.7 Seconds (9.4-12.1)
[2021-09-08 05:48] LABS: Calcium 7.9 mg/dL (8.6-10.3); Magnesium 1.8 mg/dL (1.6-2.6); Phosphorous 1.7 mg/dL (2.7-4.5); Potassium 3.4 mEq/L (3.5-5.1)
[2021-09-08] MEDS: Insulin LISPRO 300 UNITS/3 ML VIAL SUBQ SCH ×3 (08:13→16:13)
[2021-09-08] MEDS: DilTIAZem CD (24hr) 120 MG CAP.ER.24H PO SCH (08:15)
[2021-09-08] MEDS: 0.9 % Sodium Chloride 1,000 ML IVC SCH (13:18)
[2021-09-08] MEDS ORDERED: *HR* Warfarin 3 MG TABLET PO ONE (18:00)
[2021-09-08] MEDS ORDERED: Warfarin 1 MG, Warfarin 0.5 MG PO ONE (18:00)
[2021-09-08] MEDS ORDERED: Potassium Chloride Elixir 20 MEQ/15 ML UDC PO ONE (18:09)
[2021-09-09] MEDS: 0.9 % Sodium Chloride 1,000 ML IVC SCH (01:26)
[2021-09-09 05:01] LABS: Basophils % 0.3 %; Eosinophils # 0.2 K/mcL (0.0-0.6); Eosinophils % 1.3 %; Hematocrit 29.2 % (35.3-44.9); Hemoglobin 9.5 g/dL (11.5-15.4); Immature Granulocytes % 0.5 % (0-4); Lymphocytes % 16.5 %; Mean Corpuscular HGB Conc 32.5 g/dL (31.6-35.5); Mean Corpuscular Hemoglobin 31.1 pg (28.0-33.3); Mean Corpuscular Volume 95.7 fL (83.0-100.0); Mean Platelet Volume 10.5 fL (9.4-12.4); Monocytes # 1.6 K/mcL (0.0-1.3); Monocytes % 13.7 %; Platelet Count 213 K/mcL (140-400); Red Blood Count 3.05 M/mcL (3.82-4.97); Red Cell Distribution Width 15.3 % (11.5-14.5); Segmented Neutrophils % 67.7 %; White Blood Count 11.8 K/mcL (4.3-11.1)
[2021-09-09 05:07] LABS: Calcium 7.7 mg/dL (8.6-10.3)
[2021-09-09 05:10] LABS: INR 1.8; Prothrombin Time 20.3 Seconds (9.4-12.1)
[2021-09-09] MEDS ORDERED: *HR* Enoxaparin 80 MG/0.8 ML SYRINGE SQ SCH (06:00)
[2021-09-09] MEDS: Insulin LISPRO 300 UNITS/3 ML VIAL SUBQ SCH ×3 (07:36→15:45)
[2021-09-09] MEDS: DilTIAZem CD (24hr) 120 MG CAP.ER.24H PO SCH (07:44)
[2021-09-09] MEDS ORDERED: 0.9 % Sodium Chloride 1,000 ML IVC SCH (07:57)
[2021-09-09] MEDS: cefTRIAXone 1,000 MG in 0.9 % Sodium Chloride Mini Bag 100 ML IVPB SCH (08:07)
[2021-09-09] MEDS ORDERED: *HR* Warfarin 3 MG TABLET PO ONE (18:00)
[2021-09-10 06:58] LABS: Basophils % 0.3 %; Eosinophils # 0.2 K/mcL (0.0-0.6); Eosinophils % 1.9 %; Hematocrit 30.4 % (35.3-44.9); Hemoglobin 9.7 g/dL (11.5-15.4); Immature Granulocytes % 0.6 % (0-4); Lymphocytes # 1.7 K/mcL (0.6-4.6); Lymphocytes % 14.6 %; Mean Corpuscular HGB Conc 31.9 g/dL (31.6-35.5); Mean Corpuscular Hemoglobin 30.5 pg (28.0-33.3); Mean Corpuscular Volume 95.6 fL (83.0-100.0); Mean Platelet Volume 9.8 fL (9.4-12.4); Monocytes # 1.4 K/mcL (0.0-1.3); Monocytes % 12.1 %; Neutrophils # 8.4 K/mcL (1.6-8.9); Platelet Count 236 K/mcL (140-400); Red Blood Count 3.18 M/mcL (3.82-4.97); Red Cell Distribution Width 14.9 % (11.5-14.5); Segmented Neutrophils % 70.5 %
[2021-09-10 07:13] LABS: Estimated Average Glucose 123 mg/dl; Hemoglobin A1C 5.9 %
[2021-09-10 07:18] LABS: Phosphorous 2.5 mg/dL (2.7-4.5); Potassium 4.2 mEq/L (3.5-5.1)
[2021-09-10 07:22] LABS: INR 2.6; Prothrombin Time 28.6 Seconds (9.4-12.1)
[2021-09-10] MEDS: Insulin LISPRO 300 UNITS/3 ML VIAL SUBQ SCH ×3 (08:26→16:33)
[2021-09-10] MEDS: DilTIAZem CD (24hr) 120 MG CAP.ER.24H PO SCH (08:39)
[2021-09-10] MEDS: cefTRIAXone 1,000 MG in 0.9 % Sodium Chloride Mini Bag 100 ML IVPB SCH (08:41)
[2021-09-10] MEDS ORDERED: *HR* Warfarin 1 MG TABLET PO ONE (18:00)
[2021-09-11 03:51] LABS: C.difficile Toxin A/B Gene PCR DETECTED (Not detect); Campylobacter by PCR Not detected (Not detect)
[2021-09-11 03:52] LABS: Adenovirus F 40/41 PCR Not detected (Not detect); Astrovirus PCR Not detected (Not detect); Cryptosporidium by PCR Not detected (Not detect); Cyclospora cayetanensis PCR Not detected (Not detect); E. coli O157 by PCR Not detected (Not detect); Entamoeba histolytica PCR Not detected (Not detect); Enteroaggregative E.coli(EAEC) Not detected (Not detect); Enteropathogenic E.coli(EPEC) Not detected (Not detect); Enterotoxigenic E.coli (ETEC) Not detected (Not detect); Giardia lamblia PCR Not detected (Not detect); Norovirus GI/GII PCR Not detected (Not detect); Plesiomonas shigelloides PCR Not detected (Not detect); Rotavirus A PCR Not detected (Not detect); Salmonella PCR Not detected (Not detect); Sapovirus PCR Not detected (Not detect); Shig/EnteroinvasiveE coli EIEC Not detected (Not detect); Shigalike tox-prod E coli STEC Not detected (Not detect); Vibrio PCR Not detected (Not detect); Vibrio cholerae PCR Not detected (Not detect); Yersinia enterocolitica PCR Not detected (Not detect)
[2021-09-11 05:28] LABS: Basophils % 0.3 %; Eosinophils # 0.5 K/mcL (0.0-0.6); Hemoglobin 10.3 g/dL (11.5-15.4); Immature Granulocytes % 0.6 % (0-4); Lymphocytes # 1.8 K/mcL (0.6-4.6); Lymphocytes % 15.2 %; Mean Corpuscular HGB Conc 32.2 g/dL (31.6-35.5); Mean Corpuscular Hemoglobin 31.3 pg (28.0-33.3); Mean Corpuscular Volume 97.3 fL (83.0-100.0); Mean Platelet Volume 10.7 fL (9.4-12.4); Monocytes # 1.7 K/mcL (0.0-1.3); Monocytes % 14.1 %; Neutrophils # 7.8 K/mcL (1.6-8.9); Platelet Count 283 K/mcL (140-400); Red Blood Count 3.29 M/mcL (3.82-4.97); Red Cell Distribution Width 14.7 % (11.5-14.5); Segmented Neutrophils % 65.8 %; White Blood Count 11.8 K/mcL (4.3-11.1)
[2021-09-11 05:35] LABS: INR 3.2; Prothrombin Time 35.6 Seconds (9.4-12.1)
[2021-09-11 05:40] LABS: Calcium 8.1 mg/dL (8.6-10.3); Potassium 4.2 mEq/L (3.5-5.1)
[2021-09-11] MEDS: Vancomycin Oral Soln 125 MG/2.5 ML UDC PO SCH ×5 (05:59→20:12)
[2021-09-11] MEDS: Insulin LISPRO 300 UNITS/3 ML VIAL SUBQ SCH ×3 (07:51→17:06)
[2021-09-11] MEDS: DilTIAZem CD (24hr) 120 MG CAP.ER.24H PO SCH (10:43)
[2021-09-11] MEDS: cefTRIAXone 1,000 MG in 0.9 % Sodium Chloride Mini Bag 100 ML IVPB SCH (10:43)
[2021-09-11] MEDS: Lactobacillus 1 EACH CAP.SPRINK PO SCH ×2 (13:34→20:09)
[2021-09-11] MEDS: Amoxicillin/Clavulanate 500 MG TABLET PO SCH (18:53)
[2021-09-12 06:27] LABS: Basophils % 0.3 %; Eosinophils # 0.4 K/mcL (0.0-0.6); Eosinophils % 4.2 %; Hematocrit 29.4 % (35.3-44.9); Hemoglobin 9.3 g/dL (11.5-15.4); Immature Granulocytes % 0.6 % (0-4); Lymphocytes # 1.6 K/mcL (0.6-4.6); Lymphocytes % 15.5 %; Mean Corpuscular HGB Conc 31.6 g/dL (31.6-35.5); Mean Corpuscular Hemoglobin 29.9 pg (28.0-33.3); Mean Corpuscular Volume 94.5 fL (83.0-100.0); Mean Platelet Volume 9.7 fL (9.4-12.4); Monocytes # 1.6 K/mcL (0.0-1.3); Monocytes % 15.5 %; Neutrophils # 6.6 K/mcL (1.6-8.9); Platelet Count 280 K/mcL (140-400); Red Blood Count 3.11 M/mcL (3.82-4.97); Red Cell Distribution Width 14.6 % (11.5-14.5); Segmented Neutrophils % 63.9 %; White Blood Count 10.4 K/mcL (4.3-11.1)
[2021-09-12 06:33] LABS: INR 2.2; Prothrombin Time 24.8 Seconds (9.4-12.1)
[2021-09-12 06:41] LABS: Phosphorous 2.5 mg/dL (2.7-4.5)
[2021-09-12] MEDS: Insulin LISPRO 300 UNITS/3 ML VIAL SUBQ SCH ×3 (07:52→16:47)
[2021-09-12] MEDS: Vancomycin Oral Soln 125 MG/2.5 ML UDC PO SCH ×4 (08:09→20:35)
[2021-09-12] MEDS: Lactobacillus 1 EACH CAP.SPRINK PO SCH ×2 (08:09→20:35)
[2021-09-12] MEDS: DilTIAZem CD (24hr) 120 MG CAP.ER.24H PO SCH (08:10)
[2021-09-12] MEDS: Amoxicillin/Clavulanate 500 MG TABLET PO SCH ×2 (08:10→17:32)
[2021-09-12] MEDS ORDERED: Cefdinir 300 MG CAPSULE PO SCH (09:00)
[2021-09-12] MEDS ORDERED: *HR* Warfarin 3 MG TABLET PO ONE (18:00)
[2021-09-13 07:01] LABS: Basophils % 0.2 %; Eosinophils # 0.2 K/mcL (0.0-0.6); Eosinophils % 1.6 %; Hematocrit 30.8 % (35.3-44.9); Hemoglobin 9.9 g/dL (11.5-15.4); Immature Granulocytes % 0.6 % (0-4); Lymphocytes # 1.4 K/mcL (0.6-4.6); Lymphocytes % 10.5 %; Mean Corpuscular HGB Conc 32.1 g/dL (31.6-35.5); Mean Corpuscular Hemoglobin 30.5 pg (28.0-33.3); Mean Corpuscular Volume 94.8 fL (83.0-100.0); Mean Platelet Volume 9.6 fL (9.4-12.4); Monocytes # 1.8 K/mcL (0.0-1.3); Monocytes % 13.6 %; Neutrophils # 9.5 K/mcL (1.6-8.9); Platelet Count 306 K/mcL (140-400); Red Blood Count 3.25 M/mcL (3.82-4.97); Red Cell Distribution Width 14.6 % (11.5-14.5); Segmented Neutrophils % 73.5 %
[2021-09-13 07:09] LABS: INR 2.3; Prothrombin Time 25.1 Seconds (9.4-12.1)
[2021-09-13 07:21] LABS: Calcium 8.1 mg/dL (8.6-10.3); Potassium 4.1 mEq/L (3.5-5.1)
[2021-09-13] MEDS: Insulin LISPRO 300 UNITS/3 ML VIAL SUBQ SCH ×3 (08:33→16:10)
[2021-09-13] MEDS: Lactobacillus 1 EACH CAP.SPRINK PO SCH ×2 (08:42→20:20)
[2021-09-13] MEDS: DilTIAZem CD (24hr) 120 MG CAP.ER.24H PO SCH (08:42)
[2021-09-13] MEDS: Vancomycin Oral Soln 125 MG/2.5 ML UDC PO SCH ×4 (08:42→20:19)
[2021-09-13] MEDS: Amoxicillin/Clavulanate 500 MG TABLET PO SCH ×2 (08:42→16:39)
[2021-09-13] MEDS ORDERED: *HR* Warfarin 3 MG TABLET PO ONE (18:00)
[2021-09-14 07:27] LABS: Basophils % 0.2 %; Eosinophils # 0.3 K/mcL (0.0-0.6); Eosinophils % 2.5 %; Hematocrit 28.1 % (35.3-44.9); Immature Granulocytes % 0.7 % (0-4); Lymphocytes # 1.5 K/mcL (0.6-4.6); Mean Corpuscular HGB Conc 35.6 g/dL (31.6-35.5); Mean Corpuscular Volume 95.6 fL (83.0-100.0); Mean Platelet Volume 9.8 fL (9.4-12.4); Monocytes # 1.6 K/mcL (0.0-1.3); Monocytes % 12.6 %; Neutrophils # 9.1 K/mcL (1.6-8.9); Platelet Count 333 K/mcL (140-400); Red Blood Count 2.94 M/mcL (3.82-4.97); Red Cell Distribution Width 14.4 % (11.5-14.5); White Blood Count 12.7 K/mcL (4.3-11.1)
[2021-09-14] MEDS: Insulin LISPRO 300 UNITS/3 ML VIAL SUBQ SCH ×3 (07:43→16:59)
[2021-09-14] MEDS: Lactobacillus 1 EACH CAP.SPRINK PO SCH ×2 (08:08→21:08)
[2021-09-14] MEDS: Vancomycin Oral Soln 125 MG/2.5 ML UDC PO SCH ×4 (08:08→21:08)
[2021-09-14] MEDS: Amoxicillin/Clavulanate 500 MG TABLET PO SCH ×2 (08:08→17:08)
[2021-09-14] MEDS: DilTIAZem CD (24hr) 120 MG CAP.ER.24H PO SCH (08:08)
[2021-09-14 08:15] LABS: Magnesium 1.5 mg/dL (1.6-2.6); Phosphorous 2.5 mg/dL (2.7-4.5)
[2021-09-14 14:49] LABS: INR 2.4; Prothrombin Time 26.5 Seconds (9.4-12.1)
[2021-09-14] MEDS ORDERED: Sodium Phosphate 20 MMOL in 0.9 % Sodium Chloride 250 ML IVPB ONE (17:17)
[2021-09-14] MEDS ORDERED: *HR* Warfarin 3 MG TABLET PO ONE (18:00)
[2021-09-15 05:10] LABS: Basophils % 0.3 %; Eosinophils # 0.3 K/mcL (0.0-0.6); Eosinophils % 2.4 %; Hematocrit 29.9 % (35.3-44.9); Hemoglobin 9.4 g/dL (11.5-15.4); Immature Granulocytes % 0.7 % (0-4); Lymphocytes # 1.7 K/mcL (0.6-4.6); Lymphocytes % 12.5 %; Mean Corpuscular HGB Conc 31.4 g/dL (31.6-35.5); Mean Corpuscular Hemoglobin 29.9 pg (28.0-33.3); Mean Corpuscular Volume 95.2 fL (83.0-100.0); Mean Platelet Volume 9.5 fL (9.4-12.4); Monocytes # 1.6 K/mcL (0.0-1.3); Monocytes % 12.2 %; Neutrophils # 9.6 K/mcL (1.6-8.9); Platelet Count 324 K/mcL (140-400); Red Blood Count 3.14 M/mcL (3.82-4.97); Red Cell Distribution Width 14.6 % (11.5-14.5); Segmented Neutrophils % 71.9 %; White Blood Count 13.3 K/mcL (4.3-11.1)
[2021-09-15 05:24] LABS: Calcium 8.2 mg/dL (8.6-10.3); Magnesium 1.6 mg/dL (1.6-2.6); Potassium 3.9 mEq/L (3.5-5.1)
[2021-09-15 05:26] LABS: INR 2.4; Prothrombin Time 26.4 Seconds (9.4-12.1)
[2021-09-15] MEDS: Insulin LISPRO 300 UNITS/3 ML VIAL SUBQ SCH ×3 (07:48→17:37)
[2021-09-15] MEDS: Lactobacillus 1 EACH CAP.SPRINK PO SCH ×2 (07:59→20:41)
[2021-09-15] MEDS: Vancomycin Oral Soln 125 MG/2.5 ML UDC PO SCH ×4 (08:00→20:39)
[2021-09-15] MEDS: Amoxicillin/Clavulanate 500 MG TABLET PO SCH ×2 (08:00→16:52)
[2021-09-15] MEDS: DilTIAZem CD (24hr) 120 MG CAP.ER.24H PO SCH (08:00)
[2021-09-15] MEDS ORDERED: *HR* Warfarin 0.5 MG TABLET PO ONE (18:00)
[2021-09-16] MEDS: Insulin LISPRO 300 UNITS/3 ML VIAL SUBQ SCH ×3 (07:24→17:46)
[2021-09-16] MEDS: Vancomycin Oral Soln 125 MG/2.5 ML UDC PO SCH ×4 (09:16→21:42)
[2021-09-16] MEDS: DilTIAZem CD (24hr) 120 MG CAP.ER.24H PO SCH (09:18)
[2021-09-16] MEDS: Lactobacillus 1 EACH CAP.SPRINK PO SCH ×2 (09:18→21:42)
[2021-09-16] MEDS: Amoxicillin/Clavulanate 500 MG TABLET PO SCH ×2 (09:18→17:45)
[2021-09-16 16:48] LABS: Basophils % 0.4 %; Eosinophils # 0.2 K/mcL (0.0-0.6); Eosinophils % 1.8 %; Hematocrit 30.5 % (35.3-44.9); Hemoglobin 9.9 g/dL (11.5-15.4); Immature Granulocytes % 0.7 % (0-4); Lymphocytes # 1.4 K/mcL (0.6-4.6); Lymphocytes % 12.9 %; Mean Corpuscular HGB Conc 32.5 g/dL (31.6-35.5); Mean Corpuscular Hemoglobin 30.8 pg (28.0-33.3); Mean Platelet Volume 9.4 fL (9.4-12.4); Monocytes # 1.2 K/mcL (0.0-1.3); Monocytes % 11.3 %; Platelet Count 345 K/mcL (140-400); Red Blood Count 3.21 M/mcL (3.82-4.97); Red Cell Distribution Width 14.6 % (11.5-14.5); Segmented Neutrophils % 72.9 %
[2021-09-16 16:56] LABS: INR 2.3
[2021-09-16 17:03] LABS: Calcium 8.2 mg/dL (8.6-10.3); Magnesium 1.6 mg/dL (1.6-2.6); Potassium 4.3 mEq/L (3.5-5.1)
[2021-09-16] MEDS ORDERED: *HR* Warfarin 3 MG TABLET PO ONE ×2 (18:00→18:30)
[2021-09-17 04:24] LABS: Basophils # 0.1 K/mcL (0.0-0.2); Basophils % 0.5 %; Eosinophils # 0.3 K/mcL (0.0-0.6); Eosinophils % 2.4 %; Hematocrit 28.8 % (35.3-44.9); Hemoglobin 9.1 g/dL (11.5-15.4); Immature Granulocytes % 0.6 % (0-4); Lymphocytes # 1.9 K/mcL (0.6-4.6); Mean Corpuscular HGB Conc 31.6 g/dL (31.6-35.5); Mean Corpuscular Hemoglobin 30.3 pg (28.0-33.3); Mean Platelet Volume 9.3 fL (9.4-12.4); Monocytes # 1.3 K/mcL (0.0-1.3); Monocytes % 11.5 %; Neutrophils # 7.5 K/mcL (1.6-8.9); Platelet Count 344 K/mcL (140-400); Red Cell Distribution Width 14.6 % (11.5-14.5); White Blood Count 11.1 K/mcL (4.3-11.1)
[2021-09-17 04:33] LABS: INR 2.3; Prothrombin Time 25.2 Seconds (9.4-12.1)
[2021-09-17 04:41] LABS: Magnesium 1.6 mg/dL (1.6-2.6); Potassium 4.1 mEq/L (3.5-5.1)
[2021-09-17] MEDS: Insulin LISPRO 300 UNITS/3 ML VIAL SUBQ SCH ×3 (09:10→17:38)
[2021-09-17] MEDS: Vancomycin Oral Soln 125 MG/2.5 ML UDC PO SCH ×4 (09:27→21:09)
[2021-09-17] MEDS: Lactobacillus 1 EACH CAP.SPRINK PO SCH ×2 (09:27→21:09)
[2021-09-17] MEDS: DilTIAZem CD (24hr) 120 MG CAP.ER.24H PO SCH (09:27)
[2021-09-17] MEDS ORDERED: *HR* Warfarin 3 MG TABLET PO ONE (18:00)
[2021-09-18 07:23] LABS: Basophils # 0.1 K/mcL (0.0-0.2); Basophils % 0.5 %; Eosinophils # 0.2 K/mcL (0.0-0.6); Hematocrit 28.4 % (35.3-44.9); Hemoglobin 9.3 g/dL (11.5-15.4); Immature Granulocytes % 0.6 % (0-4); Lymphocytes # 1.7 K/mcL (0.6-4.6); Lymphocytes % 15.3 %; Mean Corpuscular HGB Conc 32.7 g/dL (31.6-35.5); Mean Corpuscular Hemoglobin 31.1 pg (28.0-33.3); Mean Platelet Volume 9.2 fL (9.4-12.4); Monocytes % 9.5 %; Neutrophils # 7.8 K/mcL (1.6-8.9); Platelet Count 366 K/mcL (140-400); Red Blood Count 2.99 M/mcL (3.82-4.97); Red Cell Distribution Width 14.5 % (11.5-14.5); Segmented Neutrophils % 72.1 %; White Blood Count 10.9 K/mcL (4.3-11.1)
[2021-09-18 07:29] LABS: INR 2.5; Prothrombin Time 27.6 Seconds (9.4-12.1)
[2021-09-18] MEDS: Insulin LISPRO 300 UNITS/3 ML VIAL SUBQ SCH ×3 (07:41→16:19)
[2021-09-18 07:42] LABS: Calcium 8.3 mg/dL (8.6-10.3); Magnesium 1.6 mg/dL (1.6-2.6); Phosphorous 2.9 mg/dL (2.7-4.5)
[2021-09-18] MEDS: DilTIAZem CD (24hr) 120 MG CAP.ER.24H PO SCH (08:45)
[2021-09-18] MEDS: Vancomycin Oral Soln 125 MG/2.5 ML UDC PO SCH ×4 (08:45→20:42)
[2021-09-18] MEDS: Lactobacillus 1 EACH CAP.SPRINK PO SCH ×2 (08:45→20:42)
[2021-09-18] MEDS ORDERED: *HR* Warfarin 3 MG TABLET PO ONE (18:00)
[2021-09-19 06:01] LABS: Basophils # 0.1 K/mcL (0.0-0.2); Basophils % 0.8 %; Eosinophils # 0.3 K/mcL (0.0-0.6); Eosinophils % 2.9 %; Hematocrit 29.7 % (35.3-44.9); Immature Granulocytes % 0.6 % (0-4); Lymphocytes # 2.1 K/mcL (0.6-4.6); Mean Corpuscular HGB Conc 33.7 g/dL (31.6-35.5); Mean Corpuscular Hemoglobin 32.5 pg (28.0-33.3); Mean Corpuscular Volume 96.4 fL (83.0-100.0); Mean Platelet Volume 9.2 fL (9.4-12.4); Monocytes # 0.8 K/mcL (0.0-1.3); Neutrophils # 5.8 K/mcL (1.6-8.9); Platelet Count 379 K/mcL (140-400); Red Blood Count 3.08 M/mcL (3.82-4.97); Red Cell Distribution Width 14.4 % (11.5-14.5); Segmented Neutrophils % 63.7 %; White Blood Count 9.1 K/mcL (4.3-11.1)
[2021-09-19 06:15] LABS: INR 2.8; Prothrombin Time 30.7 Seconds (9.4-12.1)
[2021-09-19 06:32] LABS: Calcium 8.4 mg/dL (8.6-10.3); Magnesium 1.7 mg/dL (1.6-2.6); Potassium 4.2 mEq/L (3.5-5.1)
[2021-09-19] MEDS: Insulin LISPRO 300 UNITS/3 ML VIAL SUBQ SCH ×3 (07:58→17:35)
[2021-09-19] MEDS: DilTIAZem CD (24hr) 120 MG CAP.ER.24H PO SCH (08:44)
[2021-09-19] MEDS: Lactobacillus 1 EACH CAP.SPRINK PO SCH ×2 (08:44→20:37)
[2021-09-19] MEDS: Vancomycin Oral Soln 125 MG/2.5 ML UDC PO SCH ×4 (08:45→20:38)
[2021-09-19] MEDS ORDERED: *HR* Warfarin 3 MG TABLET PO ONE (18:00)
[2021-09-19] MEDS ORDERED: Warfarin 0.5 MG, Warfarin 1 MG PO ONE (18:00)
[2021-09-20 06:34] LABS: Basophils # 0.1 K/mcL (0.0-0.2); Basophils % 0.7 %; Eosinophils # 0.3 K/mcL (0.0-0.6); Eosinophils % 3.2 %; Hematocrit 32.8 % (35.3-44.9); Hemoglobin 10.7 g/dL (11.5-15.4); Immature Granulocytes % 0.4 % (0-4); Lymphocytes # 1.9 K/mcL (0.6-4.6); Lymphocytes % 22.7 %; Mean Corpuscular HGB Conc 32.6 g/dL (31.6-35.5); Mean Corpuscular Hemoglobin 30.7 pg (28.0-33.3); Mean Corpuscular Volume 94.3 fL (83.0-100.0); Mean Platelet Volume 9.1 fL (9.4-12.4); Monocytes # 0.8 K/mcL (0.0-1.3); Monocytes % 9.1 %; Neutrophils # 5.4 K/mcL (1.6-8.9); Platelet Count 397 K/mcL (140-400); Red Blood Count 3.48 M/mcL (3.82-4.97); Red Cell Distribution Width 14.3 % (11.5-14.5); Segmented Neutrophils % 63.9 %; White Blood Count 8.5 K/mcL (4.3-11.1)
[2021-09-20 06:43] LABS: INR 3.1
[2021-09-20 06:45] LABS: Calcium 8.6 mg/dL (8.6-10.3); Magnesium 1.7 mg/dL (1.6-2.6)
[2021-09-20] MEDS: Insulin LISPRO 300 UNITS/3 ML VIAL SUBQ SCH ×3 (08:11→20:41)
[2021-09-20] MEDS: DilTIAZem CD (24hr) 120 MG CAP.ER.24H PO SCH (08:12)
[2021-09-20] MEDS: Lactobacillus 1 EACH CAP.SPRINK PO SCH ×2 (08:12→20:45)
[2021-09-20] MEDS: Vancomycin Oral Soln 125 MG/2.5 ML UDC PO SCH ×4 (08:12→20:46)
[2021-09-21] MEDS: Insulin LISPRO 300 UNITS/3 ML VIAL SUBQ SCH ×3 (08:18→16:23)
[2021-09-21] MEDS: Lactobacillus 1 EACH CAP.SPRINK PO SCH ×2 (09:48→20:45)
[2021-09-21] MEDS: DilTIAZem CD (24hr) 120 MG CAP.ER.24H PO SCH (09:48)
[2021-09-21 13:28] LABS: Basophils # 0.1 K/mcL (0.0-0.2); Basophils % 0.7 %; Eosinophils # 0.2 K/mcL (0.0-0.6); Eosinophils % 2.2 %; Hematocrit 32.3 % (35.3-44.9); Hemoglobin 10.2 g/dL (11.5-15.4); Immature Granulocytes % 0.5 % (0-4); Lymphocytes # 1.6 K/mcL (0.6-4.6); Lymphocytes % 15.3 %; Mean Corpuscular HGB Conc 31.6 g/dL (31.6-35.5); Mean Corpuscular Hemoglobin 30.2 pg (28.0-33.3); Mean Corpuscular Volume 95.6 fL (83.0-100.0); Mean Platelet Volume 9.1 fL (9.4-12.4); Monocytes # 0.7 K/mcL (0.0-1.3); Monocytes % 6.9 %; Neutrophils # 7.6 K/mcL (1.6-8.9); Platelet Count 422 K/mcL (140-400); Red Blood Count 3.38 M/mcL (3.82-4.97); Red Cell Distribution Width 14.3 % (11.5-14.5); Segmented Neutrophils % 74.4 %; White Blood Count 10.3 K/mcL (4.3-11.1)
[2021-09-21 13:42] LABS: INR 2.4; Prothrombin Time 26.8 Seconds (9.4-12.1)
[2021-09-21 13:45] LABS: Calcium 8.8 mg/dL (8.6-10.3); Magnesium 1.7 mg/dL (1.6-2.6); Potassium 4.1 mEq/L (3.5-5.1)
[2021-09-21] MEDS ORDERED: Warfarin 0.5 MG, Warfarin 1 MG PO ONE (18:00)
[2021-09-22 01:20] LABS: INR 2.1; Prothrombin Time 23.3 Seconds (9.4-12.1)
[2021-09-22] MEDS: Insulin LISPRO 300 UNITS/3 ML VIAL SUBQ SCH ×3 (08:05→17:24)
[2021-09-22] MEDS: DilTIAZem CD (24hr) 120 MG CAP.ER.24H PO SCH (08:07)
[2021-09-22] MEDS: Lactobacillus 1 EACH CAP.SPRINK PO SCH ×2 (08:07→21:01)
[2021-09-22] MEDS ORDERED: *HR* Warfarin 3 MG TABLET PO ONE (18:00)
[2021-09-23 02:45] LABS: INR 1.9; Prothrombin Time 21.3 Seconds (9.4-12.1)
[2021-09-23 02:56] LABS: Calcium 8.5 mg/dL (8.6-10.3); Potassium 4.3 mEq/L (3.5-5.1)
[2021-09-23] MEDS: Insulin LISPRO 300 UNITS/3 ML VIAL SUBQ SCH ×3 (07:45→18:09)
[2021-09-23] MEDS: DilTIAZem CD (24hr) 120 MG CAP.ER.24H PO SCH (08:37)
[2021-09-23] MEDS: Lactobacillus 1 EACH CAP.SPRINK PO SCH ×2 (08:37→20:27)
[2021-09-23] MEDS ORDERED: Methyl Salicylate/Menthol 57 APPL/57 GM TUBE TP PRN (15:22)
[2021-09-23] MEDS ORDERED: *HR* Warfarin 2.5 MG TABLET PO ONE (18:00)
[2021-09-24 06:29] LABS: INR 2.1; Prothrombin Time 23.8 Seconds (9.4-12.1)
[2021-09-24] MEDS: Insulin LISPRO 300 UNITS/3 ML VIAL SUBQ SCH ×3 (10:48→16:35)
[2021-09-24] MEDS: Lactobacillus 1 EACH CAP.SPRINK PO SCH ×2 (10:55→19:59)
[2021-09-24] MEDS: Nystatin POWDER 30 GM BOTTLE TP SCH ×2 (10:55→20:00)
[2021-09-24] MEDS: DilTIAZem CD (24hr) 120 MG CAP.ER.24H PO SCH (10:56)
[2021-09-24] MEDS ORDERED: *HR* Warfarin 2.5 MG TABLET PO ONE (18:00)
[2021-09-25 06:29] LABS: INR 2.2; Prothrombin Time 24.1 Seconds (9.4-12.1)
[2021-09-25 08:08] VITALS: O2SAT 97
[2021-09-25] MEDS: Insulin LISPRO 300 UNITS/3 ML VIAL SUBQ SCH ×2 (08:44→11:58)
[2021-09-25] MEDS: DilTIAZem CD (24hr) 120 MG CAP.ER.24H PO SCH (10:04)
[2021-09-25] MEDS: Lactobacillus 1 EACH CAP.SPRINK PO SCH (10:04)
[2021-09-25 11:57] VITALS: BP 129/80; PULSE 94; TEMP 98.3
[2021-09-25] MEDS: Nystatin POWDER 30 GM BOTTLE TP SCH (14:38)
[2021-09-25 15:39] LABS: Adenovirus Not Detected (Not Detect); Bordetella Pertussis Not Detected (Not Detect); Chlamydophila pneumoniae Not Detected (Not Detect); Coronavirus 229E Not Detected (Not Detect); Coronavirus HKU1 Not Detected (Not Detect); Coronavirus NL63 Not Detected (Not Detect); Coronavirus OC43 Not Detected (Not Detect); Human Metapneumovirus Not Detected (Not Detect); Human Rhinovirus/Enterovirus Not Detected (Not Detect); Influenza A Subtype 2009 H1 Not Detected (Not Detect); Influenza B Not Detected (Not Detect); Mycoplasma pneumoniae Not Detected (Not Detect); Parainfluenza Virus 1 Not Detected (Not Detect); Parainfluenza Virus 2 Not Detected (Not Detect); Parainfluenza Virus 3 Not Detected (Not Detect); Parainfluenza Virus 4 Not Detected (Not Detect); Respiratory Syncytial Virus Not Detected (Not Detect); SARS-CoV-2 Not Detected (Not Detect)
[2021-09-25] MEDS ORDERED: *HR* Warfarin 2.5 MG TABLET PO ONE (18:00)
== END 2021-09-25 16:58 ==
LOC: 3ANU 13:26 → EMEROOARM 13:26 → SUATTDRO 19:45 → 3ANU 20:35
PROVIDERS: ADMIT Internal Medicine; ATTEND Hospitalist